=== PATIENT | female | born 1970 | race Caucasian/White ===

== ENCOUNTER 2017-12-22 20:02 | Emergency (ER) | payer BC, SELFPAY ==
[2017-12-22 20:03] VITALS: BP 162/102; PULSE 101; RESP 16; TEMP 37.2; O2SAT 99; BMI 32.5
--- NOTE | 2017-12-22 20:20 | RAD_ITS ---
STUDY: X-RAY - RIGHT ANKLE REASON FOR EXAM: Female, 47 years old. Stepped in hole TECHNIQUE: 3 view(s) of the ankle. COMPARISON: None. FINDINGS: Normal visualized distal tibia and fibula. Normal medial and lateral malleoli. Normal tibiotalar articulation and ankle mortise. Normal visualized talus. Tiny plantar calcaneal spur. The visualized subtalar, talonavicular, calcaneocuboid and tarsal articulations are normal. Post surgical changes involving the fifth metatarsal shaft The soft tissue structures are unremarkable. RAD/Ankle min 3 Views IMPRESSION: No evidence for acute fracture or dislocation at this time Electronically Signed: Dewey Guerra MD at 20:36 EDT , Service support ,
[2017-12-22 20:36] VITALS: BP 157/105; PULSE 105; RESP 18; O2SAT 97
--- NOTE | 2017-12-22 20:55 | ED.VISSUMM ---
- ER Visit Summary Date of Service: 12/22/17 Chief Complaint: Right ankle injury History of Present Illness: The patient is a 47 F presenting with acute onset right ankle pain that started when she stepped in a hole and twisted her right ankle 1 hour ago. Denies any other injuries. Denies foot pain. Physical Examination: Mild tenderness right lateral malleolus. Mild swelling. Skin intact. No ecchymosis. No foot tenderness Test Results: X-ray negative per radiology for fracture Emergency Department Course and Treatment: Placed in Aircast splint. Follow-up if not improving for repeat imaging Treatment Plan: Follow up if not improving Disposition: Home stable Impression: Initial encounter right ankle sprain This note was generated with OneName dictation software. It may contain incorrect words, spelling, and punctuation that were not noted in review of the chart prior to signing ED Disposition - Plan for ED Patient: Chief Complaint: Lower Extremity Injury Instructions: ED Sprain Ankle W X Ray Referrals: Chon Manriquez DO [Primary Care Provider] - 1 Week if not improving
== END 2017-12-22 21:20 | disposition home or self-care (01) ==
LOC: ED 20:31
PROVIDERS: Emergency Provider Emergency Medicine; Family Provider Family Medicine; PCP Family Medicine
DX: S93.401A Sprain of unspecified ligament of right ankle, initial encounter (principal); X50.1XXA Overexertion from prolonged static or awkward postures, initial encounter; Y93.9 Activity, unspecified; Y92.89 Other specified places as the place of occurrence of the external cause; Y99.9 Unspecified external cause status
CPT/HCPCS: 73610; 99283

== ENCOUNTER → 2018-03-11 15:06 | Outpatient (CLI) | payer BC, SELFPAY ==
--- NOTE | 2018-03-11 15:17 | EKG12_ITS ---
Test Reason : Blood Pressure : / mmHG Vent. Rate : 078 BPM Atrial Rate : 078 BPM P-R Int : 144 ms QRS Dur : 110 ms QT Int : 376 ms P-R-T Axes : 044 074 069 degrees QTc Int : 428 ms Normal sinus rhythm Incomplete right bundle branch block T wave abnormality, consider anterolateral ischemia Abnormal ECG Confirmed by VALENCIA ALARCON ([id number]), editor newspaper ERIKA ALVES ([id number]) on 03/15/2018 9:10:56 AM Referred By: Stephen Moon Confirmed By:VALENCIA ALARCON
[2018-03-11 16:02] LABS: Absolute Lymphocyte Count 1.56 X10^3/ul (0.83-4.51); Absolute Neutrophil Count 12.9 X10^3/uL (2.0-7.7); Hematocrit 40.4 % (37-47); Hemoglobin 13.1 g/dl (12.0-15.0); Lymphocyte # 1.56 X10^3/ul (4.0); Lymphocyte % 10.2 % (19-41); Mean Corp Hgb Conc 32.4 g/gl (32-36); Mean Corpuscular Hgb 32.1 pg (27.0-32.0); Mean Platelet Vol. 10.1 fl (6.2-12.0); Monocyte# 0.79 X10^3/uL; Monocyte% 5.2 % (0-10); Neutrophil % 84.3 % (47-70); Platelet Count 346 K/mm3 (150-450); Red Blood Count 4.08 M/mm3 (4.2-5.4); White Blood Count 15.3 K/mm3 (4.4-11.0)
[2018-03-11 16:03] LABS: POSITIVE COUNT NO; POSITIVE DIFFERENTIAL NO; POSITIVE MORPHOLOGY NO
[2018-03-11 16:44] LABS: AST(SGOT) 25 U/L (15-37); Alanine Aminotransfer ALT/SGPT 65 U/L (13-56); Albumin, Serum 3.9 g/dL (3.2-5.0); Alkaline Phosphatase 66 U/L (45-117); Anion Gap 11 (5-15); BUN 14 mg/dL (7-18); BUN/Creat Ratio 22.5 RATIO (10-20); Calcium,Total 9.2 mg/dL (8.5-10.1); Chloride 102 mmol/L (98-107); Cholesterol 258 mg/dL (200); Creatinine, Serum 0.62 mg/dL (0.55-1.02); EST Glomerular Filtration Rate 108 mL/min (>60); Est Glom Filt Rate - Afr Amer 131 mL/min (>60); Globulin 3.9 g/dL (2.2-4.2); Glucose 107 mg/dL (74-106); High Density Lipoprotein 56 mg/dL; Potassium 3.9 mmol/L (3.5-5.1); Protein, Total 7.8 g/dL (6.4-8.2); Sodium Level 136 mmol/L (136-145); Thyroid Stim Hormone (TSH) 0.43 uIU/mL (0.358-3.74); Triglycerides 153 mg/dL; Very Low Density Lipoprotein 31 mg/dL (5-40)
[2018-03-11 16:45] LABS: Vitamin B12 282 pg/mL (211-911); Vitamin D,25 Hydroxy 15.6 ng/mL (29.95-100.01)
== END ==
PROVIDERS: Family Provider Family Medicine; PCP Family Medicine; Referring Provider Nurse Practitioner Family; Visit Provider Nurse Practitioner Family
DX: E53.8 Deficiency of other specified B group vitamins (principal); E55.9 Vitamin D deficiency, unspecified; I10 Essential (primary) hypertension; Z13.29 Encounter for screening for other suspected endocrine disorder; Z13.220 Encounter for screening for lipoid disorders
CPT/HCPCS: 36415; 80053; 80061; 82306; 82607; 84443; 85025; 93005

== ENCOUNTER → 2018-04-04 06:40 | Outpatient (CLI) | payer BC, SELFPAY ==
--- NOTE | 2018-04-04 10:20 | STRESSREP ---
Stress Test Report Pharmacologic myocardial perfusion stress test. 48-year-old lady with a history of chest pain. Stress protocol: Resting EKG demonstrates normal sinus rhythm with a rate of 74 bpm normal intervals are noted resting blood pressure 130/84 mmHg. 0.4 mg of regadenoson was infused per usual protocol followed by rapid intravenous saline flush injection continuous EKG monitoring was performed. The maximum heart rate attained was 106 bpm which was 61% of maximum predicted heart rate the maximum workload was 1 metabolic equivalent. At rest there were no ST or T wave changes noted suggest ischemia at peak infusion no ST or T wave changes were noted suggest ischemia. No clinical angina was noted. The resting blood pressure is 130/84 with a final blood pressure 136/80 mmHg. Myocardial perfusion protocol. 15.0 mCi of technetium 99m sestamibi was injected at rest. 0.4 mg of regadenoson was infused per usual protocol. At peak infusion 44.0 mCi of technetium 99m sestamibi was injected stress images were obtained stress and rest images were reconstructed and compared in the short axis vertical long and horizontal long axis. Gated images were also obtained Perfusion SPECT analysis: Review of the stress images demonstrate normal uptake of tracer noted in all areas of the myocardium with mild reduction of perfusion noted in the anterior wall on the stress images. The resting images demonstrate a similar pattern. The above is likely secondary to anterior breast wall attenuation no obvious ischemia is noted. Gated SPECT analysis: The gated ejection fraction is noted to be 77%. Conclusion: Normal pharmacologic myocardial perfusion stress test. Preserved ejection fraction.
== END ==
PROVIDERS: Family Provider Family Medicine; PCP Family Medicine; Referring Provider Nurse Practitioner Family; Visit Provider Nurse Practitioner Family
DX: R07.9 Chest pain, unspecified (principal); R94.31 Abnormal electrocardiogram [ECG] [EKG]
CPT/HCPCS: 78452; 93017; A9500; A4216; J2785

== ENCOUNTER → 2018-04-27 12:42 | Outpatient (CLI) | payer BC, SELFPAY ==
[2018-03-11 14:08] VITALS: BMI 35.0
--- NOTE | 2018-04-27 12:44 | BI_ITS ---
MAMMOGRAPHY - BILATERAL SCREENING REASON FOR EXAM: Female, 48 years old. Routine annual screening examination. PERTINENT HISTORY: Non-contributory. TECHNIQUE: Digital bilateral breast clay (3D mammographic acquisition) in the CC and MLO projections. 2-D mediolateral oblique (MLO) and craniocaudad (CC) views of both breasts were obtained. CAD: Full Field Digital Mammography with Computer Added Detection was performed. COMPARISON: Comparison is made with prior study dated June 13, 2014. FINDINGS: Breast Composition: There are scattered areas of fibroglandular density. There are no dominant masses or suspicious calcifications. Stable small bilateral benign-appearing axillary lymph nodes. No other significant abnormalities are identified. There has been no significant change since the prior study. BI/Bilat Brst Screen Clay Add-On IMPRESSION: Stable bilateral screening mammogram. Yearly follow-up mammogram recommended. (A) ASSESSMENT CATEGORY: BIRADS Category 2: Benign. A letter regarding these results will be sent to the patient by the facility within 30 days. Approximately 10% of breast cancers are not detected by mammography. A normal mammogram should not delay biopsy of a clinically suspicious abnormality. [id number] Electronically Signed: Evin Fierro MD at 14:38 EST Tel [phone], Service support ,
--- NOTE | 2018-04-27 12:44 | BI_ITS ---
MAMMOGRAPHY - BILATERAL SCREENING REASON FOR EXAM: Female, 48 years old. Routine annual screening examination. PERTINENT HISTORY: Non-contributory. TECHNIQUE: Digital bilateral breast rajesh (3D mammographic acquisition) in the CC and MLO projections. 2-D mediolateral oblique (MLO) and craniocaudad (CC) views of both breasts were obtained. CAD: Full Field Digital Mammography with Computer Added Detection was performed. COMPARISON: Comparison is made with prior study dated June 13, 2014. FINDINGS: Breast Composition: There are scattered areas of fibroglandular density. There are no dominant masses or suspicious calcifications. Stable small bilateral benign-appearing axillary lymph nodes. No other significant abnormalities are identified. There has been no significant change since the prior study. BI/SCREENING MAMM (CAD), BILAT IMPRESSION: Stable bilateral screening mammogram. Yearly follow-up mammogram recommended. (A) ASSESSMENT CATEGORY: BIRADS Category 2: Benign. A letter regarding these results will be sent to the patient by the facility within 30 days. Approximately 10% of breast cancers are not detected by mammography. A normal mammogram should not delay biopsy of a clinically suspicious abnormality. [id number] Electronically Signed: Evin Fierro MD at 14:38 EST Tel [phone], Service support ,
--- OUTSIDE RECORDS SUMMARY | 2018-06-13 16:17 | XMS RPT_ITS ---
:1970 Author Organization OHIP Support Name Relationship Address Phone ROMEO THIBODEAUX Unavailable [address] + [place] [address] S Unavailable Unavailable Unavailable ROMEO THIBODEAUX Unavailable [address] + [place] [address] S Unavailable Unavailable Unavailable ROMEO THIBODEAUX Unavailable [address] + [place] [address] S Unavailable Unavailable Unavailable ROMEO THIBODEAUX Unavailable [address] + [place] [address] S Unavailable Unavailable Unavailable ROMEO THIBODEAUX Unavailable [address] + [place] [address] S Unavailable Unavailable Unavailable ROMEO THIBODEAUX Unavailable [address] + [place] [address] S Unavailable Unavailable Unavailable ROMEO THIBODEAUX Unavailable [address] + [place] [address] S Unavailable Unavailable Unavailable ROMEO THIBODEAUX Unavailable [address] + [place] [address] S Unavailable Unavailable Unavailable ROMEO THIBODEAUX Unavailable [address] + [place] [address] S Unavailable Unavailable Unavailable ROMEO THIBODEAUX Unavailable [address] + [place] [address] S Unavailable Unavailable Unavailable ROMEO THIBODEAUX Unavailable [address] + [place] [address] S Unavailable Unavailable Unavailable Care Team Providers Name Role Phone CHANTEL VALENTE Attending Unavailable CHANTEL VALENTE Attending Unavailable Eligio Ferrer Attending Unavailable Stephen Moon HELP DESK REPRESENTATIVE-C Referring Unavailable Stephen Moon HELP DESK REPRESENTATIVE-C Attending Unavailable Chon Manriquez Primary Care Unavailable Roseanna Fermin Attending Unavailable Moon, Stephen HELP DESK REPRESENTATIVE-C Attending Unavailable Brown, Chon Referring Unavailable Brown, Chon Primary Care Unavailable Brown, Chon Primary Care Unavailable Romero Rios Attending Unavailable Moon, Stephen HELP DESK REPRESENTATIVE-C Attending Unavailable Brown, Chon Referring Unavailable Brown, Chon Primary Care Unavailable Moon, Stephen HELP DESK REPRESENTATIVE-C Attending Unavailable Brown, Chon Referring Unavailable Moon, Stephen HELP DESK REPRESENTATIVE-C Attending Unavailable Moon, Stephen HELP DESK REPRESENTATIVE-C Referring Unavailable Brown, Chon Primary Care Unavailable Ameya Alarcon Attending Unavailable Moon, Stephen HELP DESK REPRESENTATIVE-C Referring Unavailable Brown, Chon Primary Care Unavailable Moon, Stephen HELP DESK REPRESENTATIVE-C Consulting Unavailable Ameya Alarcon Attending Unavailable Moon, Stephen HELP DESK REPRESENTATIVE-C Referring Unavailable Moon, Stephen HELP DESK REPRESENTATIVE-C Attending Unavailable Moon, Stephen HELP DESK REPRESENTATIVE-C Referring Unavailable Brown, Chon Primary Care Unavailable PROBLEMS PROBLEMS DATE TYPE CONDITION / CODE ATTENDING STATUS SOURCE 04/26/2018 Unknown R94.31 - Abnormal NabilEligio woods Active [place] electrocardiogram Community [ECG] [EKG] / Hospital R94.31(ICD-10) Repository 03/15/2018 Unknown Z13.220 - Encounter Ameya Alarcon Active [place] for screening for Community lipoid disorders / Hospital Z13.220(ICD-10) Repository 03/15/2018 Unknown Z13.29 - Encounter for Ameya Alarcon Active [place] screening for other Community suspected endocrine Hospital disorder / Repository Z13.29(ICD-10) 03/15/2018 Unknown E53.8 - Deficiency of Ameya Alarcon Active [place] other specified B Community group vitamins / Hospital E53.8(ICD-10) Repository 03/15/2018 Unknown E55.9 - Vitamin D Ameya Alarcon Active [place] deficiency, Community unspecified / Hospital E55.9(ICD-10) Repository 03/30/2018 Unknown I10 - Essential Ameya Alarcon Active [place] (primary) hypertension Community / I10(ICD-10) Hospital Repository 03/10/2018 Active Unknown / UNK(Unknown) Jose VALENTE [place] [facility] [place] Repository 02/17/2018 Active Pain in right knee / NA Active [facility] M25.561(ICD-10) Clinic Other [place] Repository 09/28/2017 Unknown Z12.31 - Encounter for Stephen Moon Active [place] screening mammogram HELP DESK REPRESENTATIVE-C [facility] for malignant neoplasm [facility] breast / Repository Z12.31(ICD-10) PROCEDURES PROCEDURES No Procedure Records FoundRESULTS RESULTS SCREENING MAMM (CAD), Observed: 04/27/2018 Status: F Source: [place] 12:44 PM [facility] REPOSITORY [facility] Imaging Services [address] [place] [address] SCREENING MAMM (CAD), BILAT MR#: [id number] Acct: [id number] Name: YAMILKA THIBODEAUX Rep #: [id number] : 1970 F 48 From: Evin Fierro MD PCP: Chon Manriquez, DO Status: REG CLI Study: SCREENING MAMM (CAD), BILAT Date of Exam: 04/27/18 Exam# [id number] Ordering Dr: Stephen Moon NP-Lisa MAMMOGRAPHY - BILATERAL SCREENING REASON FOR EXAM: Female, 48 years old. Routine annual screening examination. PERTINENT HISTORY: Non-contributory. TECHNIQUE: Digital bilateral breast clay (3D mammographic acquisition) in the CC and MLO projections. 2-D mediolateral oblique (MLO) and craniocaudad (CC) views of both breasts were obtained. CAD: Full Field Digital Mammography with Computer Added Detection was performed. COMPARISON: Comparison is made with prior study dated June 13, 2014. FINDINGS: Breast Composition: There are scattered areas of fibroglandular density. There are no dominant masses or suspicious calcifications. Stable small bilateral benign-appearing axillary lymph nodes. No other significant abnormalities are identified. There has been no significant change since the prior study. BI/SCREENING MAMM (CAD), BILAT IMPRESSION: Stable bilateral screening mammogram. Yearly follow-up mammogram recommended. (A) ASSESSMENT CATEGORY: BIRADS Category 2: Benign. A letter regarding these results will be sent to the patient by the facility within 30 days. Approximately 10% of breast cancers are not detected by mammography. A normal mammogram should not delay biopsy of a clinically suspicious abnormality. [id number] Electronically Signed: Evin Fierro MD at 14:38 EST Tel [phone], Service support , CC: Chon Manriquez DO; Stephen Moon NP Women'S Ministry Director: Signed BILAT BRST SCREEN Observed: 04/27/2018 Status: F Source: [place] ADD-ON 12:44 PM [facility] REPOSITORY [facility] Imaging Services [address] [place] [address] Bilat Brst Screen Clay Add-On MR#: [id number] Acct: [id number] Name: YAMILKA THIBODEAUX Rep #: [id number] : 1970 F 48 From: Evin Fierro MD PCP: Chon Manriquez DO Status: REG CLI Study: Bilat Brst Screen Clay Add-On Date of Exam: 04/27/18 Exam# [id number] Ordering Dr: Stephen Moon HELP DESK REPRESENTATIVE-C MAMMOGRAPHY - BILATERAL SCREENING REASON FOR EXAM: Female, 48 years old. Routine annual screening examination. PERTINENT HISTORY: Non-contributory. TECHNIQUE: Digital bilateral breast clay (3D mammographic acquisition) in the CC and MLO projections. 2-D mediolateral oblique (MLO) and craniocaudad (CC) views of both breasts were obtained. CAD: Full Field Digital Mammography with Computer Added Detection was performed. COMPARISON: Comparison is made with prior study dated June 13, 2014. FINDINGS: Breast Composition: There are scattered areas of fibroglandular density. There are no dominant masses or suspicious calcifications. Stable small bilateral benign-appearing axillary lymph nodes. No other significant abnormalities are identified. There has been no significant change since the prior study. BI/Bilat Brst Screen Clay Add-On IMPRESSION: Stable bilateral screening mammogram. Yearly follow-up mammogram recommended. (A) ASSESSMENT CATEGORY: BIRADS Category 2: Benign. A letter regarding these results will be sent to the patient by the facility within 30 days. Approximately 10% of breast cancers are not detected by mammography. A normal mammogram should not delay biopsy of a clinically suspicious abnormality. [id number] Electronically Signed: Evin Fierro MD at 14:38 EST Tel [phone], Service support , CC: Chon Manriquez DO; Stephen Moon NP Women'S Ministry Director: Signed STRESS REPORT Observed: 04/04/2018 Status: F Source: [place] 10:24 AM [facility] REPOSITORY [facility] Cardiovascular Services [address] [place] [address] MR#: [id number] Acct: [id number] Name: YAMILKA THIBODEAUX Rep #: [id number] : 1970 48 From: Eligio Ferrer MD Primary Care: Chon Manriquez DO Status: REG CLI Ordering Dr: Sex: F C Stress Test Report Pharmacologic myocardial perfusion stress test. 48-year-old lady with a history of chest pain. Stress protocol: Resting EKG demonstrates normal sinus rhythm with a rate of 74 bpm normal intervals are noted resting blood pressure 130/84 mmHg. 0.4 mg of regadenoson was infused per usual protocol followed by rapid intravenous saline flush injection continuous EKG monitoring was performed. The maximum heart rate attained was 106 bpm which was 61% of maximum predicted heart rate the maximum workload was 1 metabolic equivalent. At rest there were no ST or T wave changes noted suggest ischemia at peak infusion no ST or T wave changes were noted suggest ischemia. No clinical angina was noted. The resting blood pressure is 130/84 with a final blood pressure 136/80 mmHg. Myocardial perfusion protocol. 15.0 mCi of technetium 99m sestamibi was injected at rest. 0.4 mg of regadenoson was infused per usual protocol. At peak infusion 44.0 mCi of technetium 99m sestamibi was injected stress images were obtained stress and rest images were reconstructed and compared in the short axis vertical long and horizontal long axis. Gated images were also obtained Perfusion SPECT analysis: Review of the stress images demonstrate normal uptake of tracer noted in all areas of the myocardium with mild reduction of perfusion noted in the anterior wall on the stress images. The resting images demonstrate a similar pattern. The above is likely secondary to anterior breast wall attenuation no obvious ischemia is noted. Gated SPECT analysis: The gated ejection fraction is noted to be 77%. Conclusion: Normal pharmacologic myocardial perfusion stress test. Preserved ejection fraction. 04/04/18 1024 <Electronically signed by Eligio Ferrer MD> Date Eligio Ferrer MD CC: Chon Manriquez DO; Stephen Moon NP Date Dictated: 04/04/18 1020 Date Transcribed: 04/04/18 1020 Women'S Ministry Director: [place] Signed INTERNAL MEDICINE Observed: 03/16/2018 Status: F Source: [place] OFFICE VISIT 8:36 AM [facility] Internal Medicine [address] [place] [address] OFFICE VISIT Date of Service: 03/11/18 MR#: [id number] Acct: [id number] Name: YAMILKA THIBODEAUX Rep #: [id number] : 1970 Provider: Stephen Moon NP Age/Sex: 48/F Location: [facility] [place] Status: Signed Intake Vital Signs03/11/18 Height 5 ft 7 in Intake Visit Reasons: hi bp Chief Complaint: headache and flushing Is patient in pain?: No Allergies erythromycin base [Erythromycin Base] Allergy (Verified 09/28/17 10:49) Other omeprazole Allergy (Verified 09/28/17 10:49) Other orange Allergy (Verified 12/22/17 20:07) Anaphylaxis Penicillins [PCN] Allergy (Verified 12/22/17 20:07) Anaphylaxis Medications amlodipine 10 mg-valsartan 160 mg tablet 1 tab PO QDAY #90 tab 09/28/17 [Rx Confirmed 09/28/17] omeprazole 40 mg capsule,delayed release 40 mg PO DAILY 03/11/18 [History Confirmed 03/11/18] cholecalciferol (vitamin D3) 50,000 unit capsule 50,000 unit PO QWEEK #8 cap 03/15/18 [Rx] PFSH Medical History Cyst of brain (Acute) GERD (gastroesophageal reflux disease) (Acute) History of hysterectomy (Acute) High blood pressure (Chronic) Surgical History History of foot surgery (Acute) Family History Father Myocardial infarction High cholesterol Mother Myocardial infarction High cholesterol Sister Cancer Grandmother Aneurysm Social History Smoking Status: Current some day smoker alcohol intake: current alcohol intake frequency: a few times a month Alcohol type: beer, wine substance use type: does not use what type of physical activity do you participate in: walking frequency: daily HPI HPI Chief Complaint: headache and flushing Details: YAMILKA THIBODEAUX, is a 48 F who presents to the office today for acute visit for complaints of headache and flushing. Patient has a past medical history of hypertension, vitamin B12 deficiency and vitamin D deficiency. Patient states yesterday she received steroid injection into her left knee from orthopedics. While in Ortho office she states her blood pressure was 150s over 100s and she was told that she needed to follow-up with her primary care doctor. When she woke up this morning she felt flushed, had a headache and had midsternal chest pain 4/10 dull. She states the flushing and headache she has had in the past when she was diagnosed with hypertension and thought her BP was elevated. She does have a blood pressure cuff at home but did not check her blood pressure at that time. Currently the patient has no chest pain, headache or flushing. All of her symptoms have resilved. In office blood pressure 132/83. The patient otherwise currently denies any fever, chills, nausea, vomiting, shortness of breath, chest pain or pressure, palpitations, orthopnea, lower extremity edema, syncope or presyncopal episodes. ROS Const Constitutional: Positive for headache(s); no weight change, body ache, chills, fatigue, sleep problems, fever(s), change in appetite, snoring, weakness, frequent falls or excessive sweating Eyes Eyes: No change in vision, eye pain, light sensitivity or blurry vision ENT ENT: Positive for headache(s); no abnormal hearing, ear pain, tinnitus, nasal congestion, sore throat or neck pain Resp Respiratory: No snoring, cough, shortness of breath or wheezing Cardio Cardiology: No excessive sweating, chest pain at rest, chest pain with exertion, shortness of breath, dyspnea on exertion, palpitations, orthopnea or lightheadedness Gastro GI: No abdominal pain, change in bowel habits, constipation, diarrhea, vomiting, nausea/dyspepsia or cramping Genitourinary-Female: No burning urination, painful urination, urinary incontinence, urinary frequency, abnormal vaginal bleeding, pelvic pain or other Musc Musculoskeletal: No neck pain, abnormal walking, joint pain, back pain, limited range of motion, numbness, tingling or muscle weakness Skin Skin: Positive for other (facial flushing); no redness, dry skin, itching, lesions, wounds or rash Breast Breast: Positive for other (facial flushing) Neuro Neurology: Positive for headache(s); no weakness, frequent falls, abnormal hearing, abnormal walking, numbness, tingling, abnormal speech, dizziness or memory loss Psych Psychiatric: No change in appetite, No memory loss, No anxiety, No depression, No Thoughts of harming yourself/Others Endo Endocrine: No fatigue, excessive sweating, cold intolerance, increased thirst/drinking, heat intolerance, flushing or increased hunger Aller/Imm Allergy/Immunologic: No wheezing, itchy eyes, hives or seasonal allergy symptoms Ethan/Lymp Hematologic/Lymphatic: No easy bleeding, easy bruising or enlarged lymph nodes Exam Const General: cooperative, comfortable, no acute distress Nutritional Appearance: well nourished, obese Orientation: alert, oriented x3 Limitations: mental status not altered Eyes General: appearance normal, both eyes and all related structures Neck Neck: normal visual inspection, no lymphadenopathy Thyroid: thyroid normal Chest Chest palpation AND inspection: normal inspection of the chest, normal palpation of entire chest wall, no tenderness Resp Effort AND Inspection: normal respiratory effort, able to speak in complete sentences, normal respiratory pattern, symmetric chest movement, no audible wheezes, no cough Auscultation: Bilateral: Clear to Auscultation Cardio Palpation: normal PMI Rate: regular rate Heart Sounds: S1 normal, S2 normal, normal S1 and S2, no click, no gallops, no murmurs, no rubs Musc Musculoskeletal: No joint tenderness, decreased ROM or muscle weakness Skin General: no rashes or lesions noted, elasticity normal, turgor normal Lesions: no lesions Rashes: no rashes Neuro General: alert, awake, oriented x3, CN's II-XI intact bilaterally Speech: speech normal Gait: normal gait Motor: muscle tone normal throughout Extrem General: normal to inspection, normal gait, no edema, no pedal edema Psych Appearance: grossly normal Mental Status: mental status grossly normal Affect: normal affect Attitude: cooperative Thought Process: normal Assessment AND Plan 1. Chest pain R07.9 Plan Patients symptoms she was experiencingmay have been due to the cortisone injection. Patient currently having no chest pain, flushing or BARRY however. Will obtain EKG. Patient educated for chest pain red flag signs and symptoms and when to seek emergency medical care. 2. HTN (hypertension) I10 Plan In office blood pressure at goal. No changes to medication at this time. patient encouraged to monitor blood pressure at home and keep a daily log. Patient to call office with log in 2 weeks. Will obtain routine lab work. Hypertension: Controlled on current medications, will not make any adjustments at this time. Will continue with current medication regimen, risk factor reduction, and lifestyle modifications. Discussed dietary changes that should be considered which include reducing the amount of sodium intake. Orders Orders: 3. Vitamin B12 deficiency E53.8 Plan Patient has a history of vitamin B12 deficiency, will check levels. Orders Orders: 4. Vitamin D deficiency E55.9 Plan Patient has a history of vitamin D deficiency, will check vitamin D levels. currently on no supplementation Orders Orders: Plan Detail Other Orders Orders: Follow Up 4 weeks or sooner if needed Coding Level of Care Code Off vis,est,level 3 Diagnoses Chest pain R07.9 HTN (hypertension) I10 Vitamin B12 deficiency E53.8 Vitamin D deficiency E55.9 03/16/18 0836 <Electronically signed by Stephen RODRIGUEZ> Date Stephen RODRIGUEZ Cosigner Signature: Date (if applicable) CC: 12 LEAD ELECTROCARDIOGRAM Observed: 03/15/2018 Status: F Source: [place] 9:11 AM [facility] REPOSITORY [facility] Cardiovascular Services [address] [place] [address] 12 Lead EKG 03/11/18 1530 MR#: [id number] Acct: [id number] Name: YAMILKA THIBODEAUX Rep #: [id number] : 1970 48 From: Ameya Alarcon MD Attending Dr: Stephen Moon NP Status: REG CLI Ordering Dr: Stephen Moon NP-C Date: 03/11/18 Location: LAB Sex: F C Admitted: Test Reason : Blood Pressure : / mmHG Vent. Rate : 078 BPM Atrial Rate : 078 BPM P-R Int : 144 ms QRS Dur : 110 ms QT Int : 376 ms P-R-T Axes : 044 074 069 degrees QTc Int : 428 ms Normal sinus rhythm Incomplete right bundle branch block T wave abnormality, consider anterolateral ischemia Abnormal ECG Confirmed by AMEYA ALARCON ([id number]), website/blog editor ERIKA ALVES ([id number]) on 03/15/2018 9:10:56 AM Referred By: Stephen Moon Confirmed By:AMEYA ALARCON 03/15/18 0910 Date Ameya Alarcon MD CC: Chon Manriquez DO; Stephen Moon HELP DESK REPRESENTATIVE Signed PROGRESS Observed: 03/14/2018 Status: COMPLETED Source: [place] 9:54 PM [facility] REPOSITORY O ID: [id number] Author: Chantel Valente Service: (none) Author Type: Physician Type: Progress Notes Filed: 03/14/2018 9:58 PM Note Text: PROCEDURE- JOINT INJECTION Joint Sites: knee On exam, the joint is cool to touch without sign of infection. Flexion is limited and is uncomfortable. Crepitation is present with ROM. The proposed risks versus benefits of local anesthetic and steroid injection were discussed in detail. The patient verbalizes understanding and elects to proceed with the injection. The procedure was verified with the patient, including the correct injection site, and confirmation with both the patient and accounting support specialist. Under sterile technique following verbal consent the patient underwent a right knee injection with 2cc of 6 mg/ml Celestone with 3 cc 1% Lidocaine and tolerated the procedure well without complications. The injection was performed through a superior-lateral portal to the knee without incident. The patient tolerated the injection well. Verbal instructions on post-injection care were given. Chantel Valente MD CBC W/DIFF, AUTOMATED Collected: 03/11/2018 Status: F Source: [place] 3:12 PM [facility] REPOSITORY TYPE CODE TESTS RESULT OUT OF RANGE REFERENCE UNITS LAB L100.1000 4.4-11.0 K/mm3 High WBC 15.3 LAB L100.1200 4.2-5.4 M/mm3 Low RBC 4.08 LAB L100.1300 12.0-15.0 g/dl Normal HGB 13.1 LAB L100.1400 37-47 % Normal HCT 40.4 LAB L100.1500 81-99 fL Normal MCV 99.0 LAB L100.1600 27.0-32.0 pg High MCH 32.1 LAB L100.1700 32-36 g/gl Normal MCHC 32.4 LAB L100.1810 11.6-14.6 % Normal RDW CV 13.0 LAB L100.1820 35.1-43.9 fl High RDW SD 47.0 LAB L100.1900 150-450 K/mm3 Normal PLT 346 LAB L100.2000 6.2-12.0 fl Normal MPV 10.1 LAB L100.2100 47-70 % High NEUT% 84.3 LAB L100.2200 19-41 % Low LY% 10.2 LAB L100.2300 0-10 % Normal MONO% 5.2 LAB L100.2400 0-5 % Normal EO% 0.0 LAB L100.2500 0-1 % Normal BASO% 0.0 LAB L100.2550 0.0-0.9 % Normal IM GRAN % 0.300 Result Comment: IG% - Immature Granulocytes (promyelocytes, myelocytes and metamyelocytes) > 1% indicates that a LEFT SHIFT is Present. LAB L100.2620 2.0-7.7 X10 3/uL High Absolute Neut 12.9 LAB L100.2720 0.83-4.51 X10 3/ul Normal Absolute Lymph 1.56 Performed By: #### L100.0100 #### [facility] [address] [place], [address] COMPREHENSIVE METABOLIC Collected: 03/11/2018 Status: F Source: [place] 3:12 PM [facility] REPOSITORY TYPE CODE TESTS RESULT OUT OF RANGE REFERENCE UNITS LAB L501.0100 74-106 mg/dL High GLU 107 Result Comment: Fasting Glucose result from 100 to 125 mg/dL suggests IMPAIRED HOMEOSTASIS per A.D.A. criteria. Please note revised GLUCOSE reference range effective 2017. LAB L501.1000 7-18 mg/dL Normal BUN 14 LAB L501.1100 0.55-1.02 mg/dL Normal CREAT,SERUM 0.62 Result Comment: The validity of the calculated GFR AND GFRAA in patients over 70 years has not been determined. Clinical correlation is essential. LAB L501.1110 >60 mL/min Normal EST GFR 108 Result Comment: Non- GFR Calc LAB L501.1115 >60 mL/min Normal EST GFR - AA 131 Result Comment: GFR Calc LAB L501.1300 10-20 RATIO High BUN/CRE 22.5 LAB L501.1500 6.4-8.2 g/dL T Normal PROT 7.8 LAB L501.1800 3.2-5.0 g/dL Normal ALB 3.9 LAB L501.1950 2.2-4.2 g/dL Normal GLOB 3.9 LAB L501.2000 0.9-2.4 RATIO Normal A/G 1.0 LAB L501.2200 8.5-10.1 mg/dL CA Normal 9.2 LAB L501.4100 15-37 U/L Normal AST 25 LAB L501.4305 45-117 U/L Normal ALK P 66 LAB L501.4405 13-56 U/L High ALT 65 LAB L501.4600 0.20-1.00 mg/dL T Normal BILI 0.60 LAB L501.5300 136-145 mmol/L NA Normal 136 LAB L501.5600 3.5-5.1 mmol/L K Normal 3.9 LAB L501.5900 98-107 mmol/L CL Normal 102 LAB L501.6100 21.0-32.0 mmol/L Normal CO2 23.0 LAB L501.6200 5-15 Normal GAP 11 Performed By: #### L500.4050, L500.4100, L501.9520 #### [facility] [address] [place], [place], [id number] LIPID PROFILE Collected: 03/11/2018 Status: F Source: [place] 3:12 PM [facility] REPOSITORY TYPE CODE TESTS RESULT OUT OF RANGE REFERENCE UNITS LAB L501.4900 200 mg/dL High CHOL 258 Result Comment: <200 mg/dL Desirable 200-240 mg/dL Borderline >240 mg/dL High Risk LAB L501.5000 mg/dL Normal TRIG 153 Result Comment: The drugs N-Acetylcysteine and Metamizole may falsely depress this assay. Serum Triglycerides Reference Interval Normal <150 mg/dL Borderline high 150 - 199 mg/dL High 200 - 499 mg/dL Very High > or = 500 mg/dL LAB L501.6400 mg/dL Normal HDL 56 Result Comment: The drugs N-Acetylcysteine and Metamizole may falsely depress this assay. Reference Range HDL <40 mg/dL Low HDL Cholesterol HDL >or= 60 mg/dL High HDL Cholesterol LAB L501.6500 0-130 mg/dL High LDL 171 LAB L501.6600 5-40 mg/dL Normal VLDL 31 Performed By: #### L500.4050, L500.4100, L501.9520 #### [facility] [address] [place], [place], [id number] THYROID STIM HORMONE Collected: 03/11/2018 Status: F Source: [place] (TSH) 3:12 PM [facility] REPOSITORY TYPE CODE TESTS RESULT OUT OF RANGE REFERENCE UNITS LAB L501.9520 0.358-3.74 uIU/mL Normal TSH 0.43 Performed By: #### L500.4050, L500.4100, L501.9520 #### [facility] [address] [place], [place], [id number] VITAMIN B12 Collected: 03/11/2018 Status: F Source: [place] 3:12 PM [facility] REPOSITORY TYPE CODE TESTS RESULT OUT OF RANGE REFERENCE UNITS LAB L503.0105 211-911 pg/mL Normal Vitamin B12 282 Performed By: #### L503.0105, L506.1000 #### [facility] [address] [place], [address] VITAMIN D,25 HYDROXY Collected: 03/11/2018 Status: F Source: [place] 3:12 PM [facility] REPOSITORY TYPE CODE TESTS RESULT OUT OF REFERENCE UNITS RANGE LAB L506.1000 29.95-100.01 ng/mL Low Vitamin D 15.6 25-OH Result Comment: Vitamin D 25(OH) Status Range Deficiency <20 ng/mL (50nmol/L) Insuffciency 20 - 30 ng/mL (50 - 75 nmol/L) Sufficiency 30 - 100 ng/mL (75 - 250 nmol/L) Toxicity >100 ng/mL (>250 nmol/L) Performed By: #### L503.0105, L506.1000 #### [facility] [address] [place], [address] PROGRESS Observed: 03/10/2018 Status: COMPLETED Source: [place] 2:29 PM [facility] REPOSITORY HNO ID: [id number] Author: Chantel Valente Service: (none) Author Type: Physician Type: Progress Notes Filed: 04/09/2018 1:16 PM Note Text: PROCEDURE- JOINT INJECTION Joint Sites: knee She has had previous injections in the past. On exam, the joint is cool to touch without sign of infection. Flexion is limited and is uncomfortable. Crepitation is present with ROM. The proposed risks versus benefits of local anesthetic and steroid injection were discussed in detail. The patient verbalizes understanding and elects to proceed with the injection. The procedure was verified with the patient, including the correct injection site, and confirmation with both the patient and accounting support specialist. Under sterile technique following verbal consent the patient underwent a left knee injection with 2cc of 6 mg/ml Celestone with 3 cc 1% Lidocaine and tolerated the procedure well without complications. The injection was performed through a superior-lateral portal to the knee without incident. The patient tolerated the injection well. Verbal instructions on post-injection care were given. Chantel Valente MD PROGRESS Observed: 03/10/2018 Status: COMPLETED Source: [place] 2:01 PM [facility] REPOSITORY HNO ID: [id number] Author: Romeo Luz Service: (none) Author Type: Physician Type: Progress Notes Filed: 04/09/2018 1:16 PM Note Text: DEPARTMENT OF ORTHOPAEDICS PATIENT INFO: Yamilka Thibodeaux 48 year old REFERRING Melvin: SELF HISTORY CHIEF COMPLAINT: left knee pain HPI: Yamilka is a 48 year old female that presents today with the complaints of left knee pain. She describes knee pain that bothers her with activity, especially after she has been seated for a long time. She also describes symptoms of popping, clicking, and mechanical locking of her knee joint. She has no acute injury. She had similar symptoms on her right side that improve with a cortisone injection 3 weeks ago. Ms. Thibodeaux is here to discuss the current status of her joint and the alternatives for treatment. ROS: No new medical issues No past medical history on file. No past surgical history on file. Current Outpatient Prescriptions: cqISVFIvjt-Pjjubdfhp-MZPI (EXFORGE HCT) 10-160-12.5 mg tab Take by mouth once daily. Disp: Rfl: LANSOPRAZOLE (PREVACID ORAL) Take 40 mg by mouth once daily. Disp: Rfl: HYDROcodone-acetaminophen (NORCO) 5-325 mg per tablet Take 1 tablet by mouth every 6 hours as needed. Disp: Rfl: No current facility-administered medications for this visit. ALLERGIES Allergen Reactions - Wildomar Flavor Swelling Throat swelling - Erythromycin Anaphylaxis - Nexium [Esomeprazol* Vomiting - Paxil [Paroxetine] Mental Status Change, Other: See Comments Suicide thoughts - Penicillins Anaphylaxis - Tylenol [Acetaminop* Other: See Comments Puts to sleep No family history on file. Social History Substance Use Topics - Smoking status: Former Smoker - Smokeless tobacco: Current User - Alcohol use Yes PHYSICAL EXAM: Body mass index is 36.45 kg/m?. GENERAL:Habitus: Obese CV: No extremity swelling, varices, edema, pallor, erythema PULSES: Normal,bilateral femoral 2+/2+, popliteal 2+/2+, dorsalis pedis 2+/2+, posterior tibial 2+/2+ SKIN: No rash, lesions. involving the four extremities. NEURO/PSYCH: A/Ox3. Nl mood, with no signs of depression, anxiety, or agitation. There are no pathologic reflexes. LYMPHATIC: There is no adenoathy to palpation. UPPER EXTREMITIES Right - Normal to appearance without abnormality in range of motion, stability, or strength Left - Normal to appearance without abnormality in range of motion, stability, or strength LOWER EXTREMITIES: GAIT: normal ALIGNMENT:Standing lower extremity alignment reveals no abnormality. Standing erect,the knees are fully extended. The patient has mild trouble getting up onto the exam table. Both lower extremities neurovascularly intact. MOTOR EXAM: Normal HIP EXAM: On the exam table seated and supine, hip range of motion bilaterally was symmetric, unrestricted and non-painful. No trochanteric pain to palpation. Straight leg raise and femoral nerve stretch tests were negative for acute radicular symptoms to suggest spine problems. RIGHT HIP EXAMINATION: Flexion was 100 degrees, extension full extension, 30 external, 30 degrees internal rotation. Active abduction was 30. LEFT HIP EXAMINATION: Flexion was 100 degrees, extension full extension, 30 external, 30 degrees internal rotation. Active abduction was 30. RIGHT KNEE EXAM: No effusion, no erythema and induration. No previous incisions. No popliteal fullness consistent with a Gonzalez's cyst. Range of motion 0 extension to 130 degrees of flexion. Patellofemoral crepitus was present and compression caused no pain. Ligamentous structures are intact and stable. Instability was not present. Polly had a firm endpoint, and there was no evidence for ACL insufficiency. Posterior drawer had a firm endpoint indicative of a functioning PCL. McMurrays' was negative LEFT KNEE EXAM: No effusion, no erythema and induration. No previous incisions. No popliteal fullness consistent with a Gonzalez's cyst. Range of motion 0 extension to 130 degrees of flexion. Patellofemoral crepitus was present and compression caused no pain. Ligamentous structures are intact and stable. Instability was not present. Polly had a firm endpoint, and there was no evidence for ACL insufficiency. Posterior drawer had a firm endpoint indicative of a functioning PCL. McMurrays' was positive for a medial click and pain,indicative of a meniscal tear X-RAYS: AP radiograph of left knee demonstrates no significant degenerative changes. No fracture. Medial and lateral joint spaces are maintained. MEDICAL DECISION MAKING: ASSESSMENT: Left knee internal derangement Suspect possible meniscal tear. PLAN: Yamilka and I had a long discussion about treatment options. Cortisone injection provided today She will call to notify us of the results. Should symptoms return in the next few weeks, will consider MRI. Further work-up required: No Rx Drug Management: No prescription given at today's appointment. Chantel Valente MD CNOV Observed: 03/10/2018 Status: COMPLETED Source: [place] 2:00 PM [facility] REPOSITORY Office Visit (ORMDNA) YAMILKA THIBODEAUX ([id number]) 1970 F [facility] Date Time Provider Department 03/10/18 2:00 PM CHANTEL VALENTE During your visit today, we recorded the following information about you: Weight Height 102.4 kg 1.676 m Romeo Escobar DO 04/09/2018 1:16 PM Signed DEPARTMENT OF ORTHOPAEDICS PATIENT INFO: Yamilka Thibodeaux 48 year old REFERRING MFili.: SELF HISTORY CHIEF COMPLAINT: left knee pain HPI: Yamilka is a 48 year old female that presents today with the complaints of left knee pain. She describes knee pain that bothers her with activity, especially after she has been seated for a long time. She also describes symptoms of popping, clicking, and mechanical locking of her knee joint. She has no acute injury. She had similar symptoms on her right side that improve with a cortisone injection 3 weeks ago. Ms. Thibodeaux is here to discuss the current status of her joint and the alternatives for treatment. ROS: No new medical issues No past medical history on file. No past surgical history on file. Current Outpatient Prescriptions: diVXCFMgty-Ajzdiydlr-MFEH (EXFORGE HCT) 10-160-12.5 mg tab Take by mouth once daily. Disp: Rfl: LANSOPRAZOLE (PREVACID ORAL) Take 40 mg by mouth once daily. Disp: Rfl: HYDROcodone-acetaminophen (NORCO) 5-325 mg per tablet Take 1 tablet by mouth every 6 hours as needed. Disp: Rfl: No current facility-administered medications for this visit. ALLERGIES Allergen Reactions - Wildomar Flavor Swelling Throat swelling - Erythromycin Anaphylaxis - Nexium [Esomeprazol* Vomiting - Paxil [Paroxetine] Mental Status Change, Other: See Comments Suicide thoughts - Penicillins Anaphylaxis - Tylenol [Acetaminop* Other: See Comments Puts to sleep No family history on file. Social History Substance Use Topics - Smoking status: Former Smoker - Smokeless tobacco: Current User - Alcohol use Yes PHYSICAL EXAM: Body mass index is 36.45 kg/m?. GENERAL:Habitus: Obese CV: No extremity swelling, varices, edema, pallor, erythema PULSES: Normal,bilateral femoral 2+/2+, popliteal 2+/2+, dorsalis pedis 2+/2+, posterior tibial 2+/2+ SKIN: No rash, lesions. involving the four extremities. NEURO/PSYCH: A/Ox3. Nl mood, with no signs of depression, anxiety, or agitation. There are no pathologic reflexes. LYMPHATIC: There is no adenoathy to palpation. UPPER EXTREMITIES Right - Normal to appearance without abnormality in range of motion, stability, or strength Left - Normal to appearance without abnormality in range of motion, stability, or strength LOWER EXTREMITIES: GAIT: normal ALIGNMENT:Standing lower extremity alignment reveals no abnormality. Standing erect,the knees are fully extended. The patient has mild trouble getting up onto the exam table. Both lower extremities neurovascularly intact. MOTOR EXAM: Normal HIP EXAM: On the exam table seated and supine, hip range of motion bilaterally was symmetric, unrestricted and non-painful. No trochanteric pain to palpation. Straight leg raise and femoral nerve stretch tests were negative for acute radicular symptoms to suggest spine problems. RIGHT HIP EXAMINATION: Flexion was 100 degrees, extension full extension, 30 external, 30 degrees internal rotation. Active abduction was 30. LEFT HIP EXAMINATION: Flexion was 100 degrees, extension full extension, 30 external, 30 degrees internal rotation. Active abduction was 30. RIGHT KNEE EXAM: No effusion, no erythema and induration. No previous incisions. No popliteal fullness consistent with a Gonzalez's cyst. Range of motion 0 extension to 130 degrees of flexion. Patellofemoral crepitus was present and compression caused no pain. Ligamentous structures are intact and stable. Instability was not present. Polly had a firm endpoint, and there was no evidence for ACL insufficiency. Posterior drawer had a firm endpoint indicative of a functioning PCL. McMurrays' was negative LEFT KNEE EXAM: No effusion, no erythema and induration. No previous incisions. No popliteal fullness consistent with a Gonzalez's cyst. Range of motion 0 extension to 130 degrees of flexion. Patellofemoral crepitus was present and compression caused no pain. Ligamentous structures are intact and stable. Instability was not present. Polly had a firm endpoint, and there was no evidence for ACL insufficiency. Posterior drawer had a firm endpoint indicative of a functioning PCL. McMurrays' was positive for a medial click and pain,indicative of a meniscal tear X-RAYS: AP radiograph of left knee demonstrates no significant degenerative changes. No fracture. Medial and lateral joint spaces are maintained. MEDICAL DECISION MAKING: ASSESSMENT: Left knee internal derangement Suspect possible meniscal tear. PLAN: Yamilka and I had a long discussion about treatment options. Cortisone injection provided today She will call to notify us of the results. Should symptoms return in the next few weeks, will consider MRI. Further work-up required: No Rx Drug Management: No prescription given at today's appointment. MD Chantel Ramirez MD 04/09/2018 1:16 PM Signed PROCEDURE- JOINT INJECTION Joint Sites: knee She has had previous injections in the past. On exam, the joint is cool to touch without sign of infection. Flexion is limited and is uncomfortable. Crepitation is present with ROM. The proposed risks versus benefits of local anesthetic and steroid injection were discussed in detail. The patient verbalizes understanding and elects to proceed with the injection. The procedure was verified with the patient, including the correct injection site, and confirmation with both the patient and accounting support specialist. Under sterile technique following verbal consent the patient underwent a left knee injection with 2cc of 6 mg/ml Celestone with 3 cc 1% Lidocaine and tolerated the procedure well without complications. The injection was performed through a superior-lateral portal to the knee without incident. The patient tolerated the injection well. Verbal instructions on post-injection care were given. Chantel Valente MD Referring Provider: SELF [[id number]] Allergies As of Date: 03/10/2018 Noted Allergy Reaction CITRUS FLAVOR 03/28/2014 7 - Swelling Comments: Throat swelling ERYTHROMYCIN 03/28/2014 10 - Anaphylaxis NEXIUM (ESOMEPRAZOLE MAGNESIUM) 03/28/2014 11 - Vomiting PAXIL (PAROXETINE) 03/28/2014 1 - Mental Status Change 14 - Other: See Comments Comments: Suicide thoughts PENICILLINS 03/28/2014 10 - Anaphylaxis TYLENOL (ACETAMINOPHEN) 03/28/2014 14 - Other: See Comments Comments: Puts to sleep Date Reviewed: 02/17/2018 Reviewed by: Tabitha Atkinson Ma - Fully Assessed Reason for Visit: Left Knee Pain [1208] Cmt: Pt seen on 02/17/2018 for Rt. knee, Pt. states constant pain in left knee. Primary Visit Diagnosis:Primary osteoarthritis of left knee [M17.12] Order(s):[] betamethasone acetate-betamethasone sodium phosphate 12 mg, lidocaine (PF) 10 mg/mL (1 %) 20 mgDisp: Rfl: Prescriptions as of 03/10/2018 Sig: AMLODIPINE 10 MG-VALSARTAN 16* Take by mouth once daily. PREVACID ORAL Take 40 mg by mouth once ronald* HYDROCODONE 5 MG-ACETAMINOPHE* Take 1 tablet by mouth every * Problem List As Of Date: 03/10/2018 (None) Prescriptions ordered this encounter Disp Refills Start End [facility] INJECTION BUILDER 04/09/2018 03/10/2018 Class: Suppress Questions Route: [facility] Encounter Status:Closed by CHANTEL VALENTE MD on 04/09/18 PROGRESS Observed: 02/17/2018 Status: COMPLETED Source: [place] 1:21 PM [facility] REPOSITORY HNO ID: [id number] Author: NEVIN Hooper (Ct) Service: (none) Author Type: Clinical Numerical Control Machine Tool Operator Type: Progress Notes Filed: 02/17/2018 1:21 PM Note Text: NAME:Yamilka Thibodeaux DATE: February 17, 2018 CCF#: [id number] Lower Extremity X-Ray(s): Knee, AP / Lat / Merchant Right and Wt. Bearing COMPLETED TECH ID SIGN: KENYON LAI PROGRESS Observed: 02/17/2018 Status: COMPLETED Source: [place] 10:40 AM [facility] REPOSITORY HNO ID: [id number] Author: Chantel Valente Service: (none) Author Type: Physician Type: Progress Notes Filed: 03/14/2018 9:58 PM Note Text: CONSULT ORTHOPAEDIC: KNEE PRIMARY CARE PHYSICIAN: Chon Manriquez DO REFERRING PROVIDER: SELF ASSESSMENT AND PLAN Impression: Right knee plica and mild patellofemoral arthritis. We discussed operative versus nonoperative interventions including a cortisone injection and arthroscopic debridement. She has elected for a cortisone injection today. She will call us in 1 week to let us know how she is doing. If this does not improve her symptoms and we will refer her for arthroscopic debridement. The patient has been ordered: No orders placed today. CONSULTS: Patient does not require consults for optimization at this time. There is no problem list on file for this patient. SUBJECTIVE CHIEF COMPLAINT: Knee Pain HPI: Yamilka Thibodeaux is a 48 year old female here for evaluation and management of bilateral knee pain. She has had progressive problems with the knee(s) most of the day over the past 1 year(s) interfering with activities which include exercise, gardening, doing unit manager, participating in family activities, enjoying hobbies, walking, rising from a sitting position, standing for prolonged periods of time, getting in and out of a car, dressing, climbing stairs and safety-increased risk for fall. The problem began limiting activities 1-3 years ago. Currently the pain in the joint is rated at 9 out of 10 with moderate activity. The pain is constant and is located along the outside aspect and global. The pain is described as burning, stabbing and stiffness. Relieving factors include repositioning. There is no specific incident that brought about this pain. She also complains of weakness, stiffness, locking, popping and giving way. 48-year-old female who presents today complaining of right knee pain, worse ?1 year. She locates the pain in the anterior lateral aspect of her knee. She describes it as a 9 out of 10 aching and burning pain that is not relieved by anything. She has not tried physical therapy, NSAIDs, or injections. FUNCTIONAL STATUS: Climb a flight of stairs or walk up a hill (5.50 METs) Preoperative Ambulatory Status: Impaired Community Distances Number of Entry Steps: 2 Bedroom Location: Third floor Bathroom Location: Third floor Caregiver Assistance: Consistent/Live-In (5-7 days/wk) Home Location: Up to 150 miles PREVIOUS TREATMENTS: Attempted Weight Loss Physical Therapy: Activities Modified REVIEW OF SYSTEMS: PAIN ASSESSMENT: See HPI. MUSCULOSKELETAL: See HPI. Surgical Risk Factors: Smoking No past medical history on file. No past surgical history on file. No family history on file. Social History Marital status: Spouse name: Years of education: Number of children: Social History Main Topics Smoking status: Current Some Day Smoker Packs/day: 0.00 Years: 0.00 Smokeless tobacco: Current User Alcohol use: Yes ALLERGIES: Wildomar Flavor; Erythromycin; Nexium [Esomeprazole Magnesium]; Paxil [Paroxetine]; Penicillins; Tylenol [Acetaminophen] MEDICATIONS: txENOYPdev-Qgjqnwrtq-ABEK (EXFORGE HCT) 10-160-12.5 mg tab Take by mouth once daily. LANSOPRAZOLE (PREVACID ORAL) Take 40 mg by mouth once daily. HYDROcodone-acetaminophen (NORCO) 5-325 mg per tablet Take 1 tablet by mouth every 6 hours as needed. PHYSICAL EXAM: BP 134/97 (BP Site: Left Arm, BP Position: Sitting, BP Cuff Size: Regular Adult) Ht 165.1 cm (5' 5) Wt 103.9 kg (229 lb) BMI 38.11 kg/m? All other systems deferred. GENERAL: Appears healthy, well-nourished, no deformities. HABITUS: Obese GAIT: Normal, the patient did not have trouble getting onto the exam table. Patient had increased pain with toe walk and heel walk. KNEE EXAM: Left: Alignment: Neutral Range of motion is 0 degrees in extension and 130 degrees of flexion. Extension La degrees Pain with ROM: No Effusion: None Tender to the palpation of None Pain with patellar compression: No Stability: Anterior/Posterior stable and Varus/Valgus stable Hip Exam: flexion to 100+ degrees, full extension, internal/external rotation adequate and no pain with log roll Neurovascular Status: Sensation Intact and Moves foot and ankle up AND down Right: Range of motion 0-135. No effusion. No tenderness to palpation of the medial or lateral patellar facets. Positive tenderness palpation just lateral to the patella. Mild patellar crepitus. Palpable snap anterior lateral with knee flexion and extension. Tenderness palpation medial and lateral joint line. Stable to varus and valgus stress at 0 and 30? of flexion. Polly's with solid endpoint.. Negative posterior drawer. Hip Exam: flexion to 100+ degrees, full extension, internal/external rotation adequate and no pain with log roll Neurovascular Status: Sensation Intact, Moves foot and ankle up AND down and 2+ dorsalis pedis DATA: Diagnostic tests reviewed for today's visit: Right knee X-Ray: No abnormalities Left knee X-Ray: No abnormalities The following conditions were addressed during the office visit today: none SIGNATURE: Chantel Valente MD PATIENT NAME: Yamilka Thibodeaux DATE: February 17, 2018 TIME: 10:40 AM CHARISSEOV Observed: 02/17/2018 Status: COMPLETED Source: [place] 10:20 AM [facility] REPOSITORY Office Visit (ORMDNA) YAMILKA THIBODEAUX ([id number]) 1970 F T Date Time Provider Department 02/17/18 10:20 AM CHANTEL VALENTE During your visit today, we recorded the following information about you: Blood pressure Weight Height 134/97 103.9 kg 1.651 m Tabitha Atkinson Ma 02/17/2018 10:37 AM Signed Patient presents with: New Patient Evaluation: Patient self referred for R knee pain; reports grinding and inability to move fluidly. Consult for options, she would like to get back to exercising soon. Tabitha Atkinson Ma 02/17/2018 10:38 AM Signed Your blood pressure was 134/97. Please contact your primary care doctor to have your blood pressure checked. Chantel Valente MD 03/14/2018 9:58 PM Signed CONSULT ORTHOPAEDIC: KNEE PRIMARY CARE PHYSICIAN: Chon Manriquez DO REFERRING PROVIDER: SELF ASSESSMENT AND PLAN Impression: Right knee plica and mild patellofemoral arthritis. We discussed operative versus nonoperative interventions including a cortisone injection and arthroscopic debridement. She has elected for a cortisone injection today. She will call us in 1 week to let us know how she is doing. If this does not improve her symptoms and we will refer her for arthroscopic debridement. The patient has been ordered: No orders placed today. CONSULTS: Patient does not require consults for optimization at this time. There is no problem list on file for this patient. SUBJECTIVE CHIEF COMPLAINT: Knee Pain HPI: Yamilka Thibodeaux is a 48 year old female here for evaluation and management of bilateral knee pain. She has had progressive problems with the knee(s) most of the day over the past 1 year(s) interfering with activities which include exercise, gardening, doing unit manager, participating in family activities, enjoying hobbies, walking, rising from a sitting position, standing for prolonged periods of time, getting in and out of a car, dressing, climbing stairs and safety-increased risk for fall. The problem began limiting activities 1-3 years ago. Currently the pain in the joint is rated at 9 out of 10 with moderate activity. The pain is constant and is located along the outside aspect and global. The pain is described as burning, stabbing and stiffness. Relieving factors include repositioning. There is no specific incident that brought about this pain. She also complains of weakness, stiffness, locking, popping and giving way. 48-year-old female who presents today complaining of right knee pain, worse ?1 year. She locates the pain in the anterior lateral aspect of her knee. She describes it as a 9 out of 10 aching and burning pain that is not relieved by anything. She has not tried physical therapy, NSAIDs, or injections. FUNCTIONAL STATUS: Climb a flight of stairs or walk up a hill (5.50 METs) Preoperative Ambulatory Status: Impaired Community Distances Number of Entry Steps: 2 Bedroom Location: Third floor Bathroom Location: Third floor Caregiver Assistance: Consistent/Live-In (5-7 days/wk) Home Location: [place] 150 miles PREVIOUS TREATMENTS: Attempted Weight Loss Physical Therapy: Activities Modified REVIEW OF SYSTEMS: PAIN ASSESSMENT: See HPI. MUSCULOSKELETAL: See HPI. Surgical Risk Factors: Smoking No past medical history on file. No past surgical history on file. No family history on file. Social History Marital status: Spouse name: Years of education: Number of children: Social History Main Topics Smoking status: Current Some Day Smoker Packs/day: 0.00 Years: 0.00 Smokeless tobacco: Current User Alcohol use: Yes ALLERGIES: [place] Flavor; Erythromycin; Nexium [Esomeprazole Magnesium]; Paxil [Paroxetine]; Penicillins; Tylenol [Acetaminophen] MEDICATIONS: ujOQZRDfth-Vbasgnnce-HSRU (EXFORGE HCT) 10-160-12.5 mg tab Take by mouth once daily. LANSOPRAZOLE (PREVACID ORAL) Take 40 mg by mouth once daily. HYDROcodone-acetaminophen (NORCO) 5-325 mg per tablet Take 1 tablet by mouth every 6 hours as needed. PHYSICAL EXAM: BP 134/97 (BP Site: Left Arm, BP Position: Sitting, BP Cuff Size: Regular Adult) Ht 165.1 cm (5' 5) Wt 103.9 kg (229 lb) BMI 38.11 kg/m? All other systems deferred. GENERAL: Appears healthy, well-nourished, no deformities. HABITUS: Obese GAIT: Normal, the patient did not have trouble getting onto the exam table. Patient had increased pain with toe walk and heel walk. KNEE EXAM: Left: Alignment: Neutral Range of motion is 0 degrees in extension and 130 degrees of flexion. Extension La degrees Pain with ROM: No Effusion: None Tender to the palpation of None Pain with patellar compression: No Stability: Anterior/Posterior stable and Varus/Valgus stable Hip Exam: flexion to 100+ degrees, full extension, internal/external rotation adequate and no pain with log roll Neurovascular Status: Sensation Intact and Moves foot and ankle up AND down Right: Range of motion 0-135. No effusion. No tenderness to palpation of the medial or lateral patellar facets. Positive tenderness palpation just lateral to the patella. Mild patellar crepitus. Palpable snap anterior lateral with knee flexion and extension. Tenderness palpation medial and lateral joint line. Stable to varus and valgus stress at 0 and 30? of flexion. Polly's with solid endpoint.. Negative posterior drawer. Hip Exam: flexion to 100+ degrees, full extension, internal/external rotation adequate and no pain with log roll Neurovascular Status: Sensation Intact, Moves foot and ankle up AND down and 2+ dorsalis pedis DATA: Diagnostic tests reviewed for today's visit: Right knee X-Ray: No abnormalities Left knee X-Ray: No abnormalities The following conditions were addressed during the office visit today: none SIGNATURE: Chantel Valente MD PATIENT NAME: Yamilka Thibodeaux DATE: February 17, 2018 TIME: 10:40 AM Chantel Valente MD 03/14/2018 9:58 PM Signed PROCEDURE- JOINT INJECTION Joint Sites: knee On exam, the joint is cool to touch without sign of infection. Flexion is limited and is uncomfortable. Crepitation is present with ROM. The proposed risks versus benefits of local anesthetic and steroid injection were discussed in detail. The patient verbalizes understanding and elects to proceed with the injection. The procedure was verified with the patient, including the correct injection site, and confirmation with both the patient and accounting support specialist. Under sterile technique following verbal consent the patient underwent a right knee injection with 2cc of 6 mg/ml Celestone with 3 cc 1% Lidocaine and tolerated the procedure well without complications. The injection was performed through a superior-lateral portal to the knee without incident. The patient tolerated the injection well. Verbal instructions on post-injection care were given. Chantel Valente MD Referring Provider: SELF [[id number]] Allergies As of Date: 02/17/2018 Noted Allergy Reaction CITRUS FLAVOR 03/28/2014 7 - Swelling Comments: Throat swelling ERYTHROMYCIN 03/28/2014 10 - Anaphylaxis NEXIUM (ESOMEPRAZOLE MAGNESIUM) 03/28/2014 11 - Vomiting PAXIL (PAROXETINE) 03/28/2014 1 - Mental Status Change 14 - Other: See Comments Comments: Suicide thoughts PENICILLINS 03/28/2014 10 - Anaphylaxis TYLENOL (ACETAMINOPHEN) 03/28/2014 14 - Other: See Comments Comments: Puts to sleep Date Reviewed: 02/17/2018 Reviewed by: Tabitha Atkinson Ma - Fully Assessed Reason for Visit: New Patient Evaluation [154] Cmt: Patient self referred for R knee pain; reports grinding and inability to move fluidly. Consult for options, she would like to get back to exercising soon. 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 PREVACID ORAL Take 40 mg by mouth once ronald* HYDROCODONE 5 MG-ACETAMINOPHE* Take 1 tablet by mouth every * Problem List As Of Date: 02/17/2018 (None) Visit Notes: >> Tabitha Atkinson Ma [facility] Feb 17, 2018 10:32 AM Status: Signed Patient presents with: New Patient Evaluation: Patient self referred for R knee pain; reports grinding and inability to move fluidly. Consult for options, she would like to get back to exercising soon. >> Tabitha Atkinson Ma [facility] Feb 17, 2018 10:37 AM Status: Signed Your blood pressure was 134/97. Please contact your primary care doctor to have your blood pressure checked. Prescriptions ordered this encounter Disp Refills Start End BETAMETHASONE ACETATE AND SODIUM YAIMA* 03/14/2018 02/17/2018 Route: OTHER LIDOCAINE (PF) 10 MG/ML (1 %) INJECT* 03/14/2018 02/17/2018 Route: OTHER Encounter Status:Closed by CHANTEL VALENTE MD on 03/14/18 XR KNEE 3V AP/LAT/MERCHANT Observed: 02/17/2018 Status: F Source: [place] RT 9:37 AM CLINIC OTHER CAMPUS REPOSITORY * * *Final Report* * * DATE OF EXAM: Feb 17 2018 9:37AM SHUN 5209 - XR KNEE 3V AP/LAT/MERCHANT RT / PROCEDURE REASON: M25.561-Right knee pain, unspecified chronicity * * * * Physician Interpretation * * * * EXAMINATION: XR KNEE 3V AP/LAT/MERCHANT RT CLINICAL HISTORY: PAIN RT KNEE Right knee pain, unspecified chronicity Technique: XR KNEE 3V AP/LAT/MERCHANT RT -- RIGHT knees with 3 views on 3 images Comparison: None RESULT: No fracture or dislocation. Tiny tricompartment marginal osteophytes. Joint spaces are maintained. No knee effusion. No focal soft tissue swelling. IMPRESSION: No acute osseous finding right knee. Mild degenerative changes. Women'S Ministry Director: PSCB Transcribe Date/Time: Feb 18 2018 3:12P Dictated by : YVES JOLLY MD This examination was interpreted and the report reviewed and electronically signed by: YVES JOLLY MD on Feb 18 2018 3:12PM EST [id number] INTERNAL MEDICINE Observed: 12/24/2017 Status: F Source: [place] OFFICE VISIT 9:58 AM [facility] REPOSITORY [facility] [address] [place] [address] [place] [address] OFFICE VISIT Date of Service: 12/24/17 MR#: [id number] Acct: [id number] Name: YAMILKA THIBODEAUX Rep #: [id number] : 1970 Provider: Stephen Moon NP Age/Sex: 47/F Location: [facility] Status: Signed Intake Vital Signs12/24/17 Height 5 ft 7 in 12/24/17 Blood Pressure 120/84 12/24/17 Blood Pressure Location Rt brachial 12/24/17 Blood Pressure Position Sitting Intake Visit Reasons: Injured ankle - Seen [facility] ER Chief Complaint: ER FU Rt. ankle injury Is patient in pain?: Yes (right ankle) Pain scale (1-10): 9 Allergies erythromycin base [Erythromycin Base] Allergy (Verified 09/28/17 10:49) Other omeprazole Allergy (Verified 09/28/17 10:49) Other orange Allergy (Verified 12/22/17 20:07) Anaphylaxis Penicillins [PCN] Allergy (Verified 12/22/17 20:07) Anaphylaxis Medications amlodipine 10 mg-valsartan 160 mg tablet 1 tab PO QDAY #90 tab 09/28/17 [Rx Confirmed 09/28/17] ibuprofen 600 mg tablet 600 mg PO TID PRN #30 tab 12/24/17 [Rx Confirmed 12/24/17] PFSH Medical History Cyst of brain (Acute) GERD (gastroesophageal reflux disease) (Acute) High blood pressure (Chronic) Surgical History History of foot surgery (Acute) History of hysterectomy (Acute) Family History Father Myocardial infarction High cholesterol Mother Myocardial infarction High cholesterol Sister Cancer Grandmother Aneurysm Social History Smoking Status: Current some day smoker alcohol intake: current alcohol intake frequency: a few times a month Alcohol type: beer, wine substance use type: does not use what type of physical activity do you participate in: walking frequency: daily HPI HPI Chief Complaint: ER FU Rt. ankle injury Details: YAMILKA THIBODEAUX, is a 47 F who presents to the office today for an ER follow-up. On 12/22/2017 the patient stepped in a hole with her right foot and twisted her ankle. The patient was seen at the emergency department on 12/22/2017 and an x-ray was done which was negative. The patient was placed in an Aircast splint and is here for follow-up. She notes that due to the pain, she is unable to bear much weight on the right foot. She states that she has taken 200 mg of ibuprofen 3 times a day without much relief. She has not been icing the site and she has not been compressing the site. She notes that she was not instructed to ice or compress or elevate the affected extremity. She does note that there is some numbness that is mild in her foot and that occasionally the pain shoots up the entire leg. She rates the pain as a constant throbbing 8 out of 10 right foot pain. It is aggravated by bearing weight on the affected extremity. She denies any other aggravating or relieving factors. The patient otherwise denies any fever, chills, nausea, vomiting, shortness of breath, chest pain or pressure, palpitations, orthopnea, syncope or presyncopal episodes. ROS Const Constitutional: No weight change, body ache, chills, fatigue, sleep problems, fever(s), change in appetite, snoring, weakness, frequent falls, headache(s) or excessive sweating Eyes Eyes: No change in vision, eye pain, light sensitivity or blurry vision ENT ENT: No headache(s), abnormal hearing, ear pain, tinnitus, nasal congestion, sore throat or neck pain Resp Respiratory: No snoring, cough, shortness of breath or wheezing Cardio Cardiology: No excessive sweating, chest pain at rest, chest pain with exertion, shortness of breath, dyspnea on exertion, palpitations, orthopnea or lightheadedness Gastro GI: No abdominal pain, change in bowel habits, constipation, diarrhea, vomiting, nausea/dyspepsia or cramping Genitourinary-Female: No burning urination, painful urination, urinary incontinence, urinary frequency, abnormal vaginal bleeding, pelvic pain or other Musc Musculoskeletal: Positive for other (right ankle injury); no neck pain, abnormal walking, joint pain, back pain, limited range of motion, numbness, tingling or muscle weakness Skin Skin: No redness, dry skin, itching, lesions, wounds or rash Neuro Neurology: No weakness, frequent falls, headache(s), abnormal hearing, abnormal walking, numbness, tingling, abnormal speech, dizziness or memory loss Psych Psychiatric: No change in appetite, No memory loss, No anxiety, No depression, No Thoughts of harming yourself/Others Endo Endocrine: No fatigue, excessive sweating, cold intolerance, increased thirst/drinking, heat intolerance, flushing or increased hunger Aller/Imm Allergy/Immunologic: No wheezing, itchy eyes, hives or seasonal allergy symptoms Ethan/Lymp Hematologic/Lymphatic: No easy bleeding, easy bruising or enlarged lymph nodes Exam Const General: cooperative, comfortable, no acute distress Nutritional Appearance: average body habitus, well nourished Orientation: alert, oriented x3 Limitations: mental status not altered HENMT Head: normal to inspection Ears: hearing grossly normal bilaterally Nose: external nose normal Eyes General: appearance normal, both eyes and all related structures Resp Effort AND Inspection: normal respiratory effort, able to speak in complete sentences, normal respiratory pattern, symmetric chest movement, no audible wheezes, no cough Auscultation: Bilateral: Clear to Auscultation Cardio Palpation: normal PMI Rate: regular rate Heart Sounds: S1 normal, S2 normal, normal S1 and S2, no click, no gallops, no murmurs, no rubs GI Inspection: normal to inspection Auscultation: normal bowel sounds, no hyperactive bowel sounds, no hypoactive bowel sounds Palpation: soft, no hepatosplenomegaly Musc Musculoskeletal: No muscle weakness Other: soft tissue swelling right lateral mallelous, tenderness to touch, limited active and passive ROM d/t pain. Sensation intact Skin General: no rashes or lesions noted, elasticity normal, turgor normal Lesions: no lesions Rashes: no rashes Neuro General: alert, awake, oriented x3, CN's II-XI intact bilaterally Speech: speech normal Gait: normal gait Motor: muscle tone normal throughout Extrem General: normal to inspection, normal gait, no edema, no pedal edema Psych Appearance: grossly normal Mental Status: mental status grossly normal Affect: normal affect Attitude: cooperative Thought Process: normal Assessment AND Plan Problems 1. Right ankle sprain S93.401A Plan Rest the affected extremity Ice the affected area for 20 minutes every 4 hours Compress the area with the supplies provided Elevate the affected extremity above the heart whenever possible Ibuprofen 600 mg 3 times a day with food for the next 7 days ordered. Patient to utilize her Aircast splint and/or her walking cam boot. Weightbearing as tolerated. Discussed with patient red flag symptoms that require urgent medical attention. If patient's symptoms persist or worsen, may need repeat imaging. Patient to follow-up as previously scheduled or sooner if needed. This note was generated with Talking Layers dictation software. It may contain incorrect words, spelling, and punctuation that were not noted in checking the note before signing. Medications New: Plan Detail Follow Up As previously scheduled or sooner Coding Level of Care Code Off vis,est,level 3 Diagnoses Right ankle sprain S93.401A Encounter type: initial encounter 12/24/17 0958 <Electronically signed by Stephen RODRIGUEZ> Date Stephen Moon HELP DESK REPRESENTATIVE-C Teresaguadalupe Signature: Date (if applicable) CC: EMERGENCY DEPARTMENT Observed: 12/22/2017 Status: F Source: [place] SUMMARY 8:57 PM [facility] REPOSITORY [facility] Medical Records Department [address] [place] [address] Emergency Department Summary 12/22/172054 MR#: [id number] Acct: [id number] Name: YAMILKA THIBODEAUX Rep #: [id number] : 1970 47 From: Bryson Rios MD PCP: Chon Manriquez DO Status: REG ER - ER Visit Summary Date of Service: 12/22/17 Chief Complaint: Right ankle injury History of Present Illness: The patient is a 47 F presenting with acute onset right ankle pain that started when she stepped in a hole and twisted her right ankle 1 hour ago. Denies any other injuries. Denies foot pain. Physical Examination: Mild tenderness right lateral malleolus. Mild swelling. Skin intact. No ecchymosis. No foot tenderness Test Results: X-ray negative per radiology for fracture Emergency Department Course and Treatment: Placed in Aircast splint. Follow-up if not improving for repeat imaging Treatment Plan: Follow up if not improving Disposition: Home stable Impression: Initial encounter right ankle sprain This note was generated with Talking Layers dictation software. It may contain incorrect words, spelling, and punctuation that were not noted in review of the chart prior to signing ED Disposition - Plan for ED Patient: Chief Complaint: Lower Extremity Injury Instructions: ED Sprain Ankle W X Ray Referrals: Chon Manriquez DO [Primary Care Provider] - 1 Week if not improving What to do if you have Problems For any increased pain, shortness of breath, bleeding, nausea or vomiting, chest pain, or any unexpected problems, contact your Primary Care Provider. Call [facility] ([phone]) or report to the closest Emergency Room. Call 911 if necessary. 12/22/172056 <Electronically signed by Bryson Rios MD> Date Bryson Rios MD Cosigner Signature (If Indicated): Date CC: Chon Manriquez DO ANKLE MIN 3 VIEWS Observed: 12/22/2017 Status: F Source: [place] 8:12 PM [facility] REPOSITORY [facility] Imaging Services [address] [place] [address] Ankle min 3 Views MR#: [id number] Acct: [id number] Name: YAMILKA THIBODEAUX Rep #: [id number] : 1970 F 47 From: Dewey Guerra MD PCP: Chon Manriquez DO Status: REG ER Study: Ankle min 3 Views Date of Exam: 12/22/17 Exam# [id number] Ordering Dr: Bryson Rios MD STUDY: X-RAY - RIGHT ANKLE REASON FOR EXAM: Female, 47 years old. Stepped in hole TECHNIQUE: 3 view(s) of the ankle. COMPARISON: None. FINDINGS: Normal visualized distal tibia and fibula. Normal medial and lateral malleoli. Normal tibiotalar articulation and ankle mortise. Normal visualized talus. Tiny plantar calcaneal spur. The visualized subtalar, talonavicular, calcaneocuboid and tarsal articulations are normal. Post surgical changes involving the fifth metatarsal shaft The soft tissue structures are unremarkable. RAD/Ankle min 3 Views IMPRESSION: No evidence for acute fracture or dislocation at this time Electronically Signed: Dewey Guerra MD at 20:36 EDT , Service support , CC: Romero Rios MD; Chon Manriquez DO Women'S Ministry Director: Signed INTERNAL MEDICINE Observed: 09/28/2017 Status: F Source: [place] OFFICE VISIT 6:27 PM [facility] REPOSITORY [facility] [address] [place] [address] OFFICE VISIT Date of Service: 09/28/17 MR#: [id number] Acct: [id number] Name: YAMILKA THIBODEAUX Rep #: [id number] : 1970 Provider: Stephen Moon NP Age/Sex: 47/F Location: [facility] Status: Signed Intake Vital Signs09/28/17 Height 5 ft 6 in 09/28/17 Weight: 226 lb 09/28/17 Body Mass Index (BMI) 36.4 09/28/17 Blood Pressure 131/92 Intake Visit Reasons: BP med refill Chief Complaint: BP Med refill Is patient in pain?: No Allergies erythromycin base [Erythromycin Base] Allergy (Verified 09/28/17 10:49) Other omeprazole Allergy (Verified 09/28/17 10:49) Other Medications amlodipine 10 mg-valsartan 160 mg tablet 1 tab PO QDAY #90 tab 09/28/17 [Rx Confirmed 09/28/17] PFSH Medical History Cyst of brain (Acute) GERD (gastroesophageal reflux disease) (Acute) High blood pressure (Chronic) Surgical History History of foot surgery (Acute) History of hysterectomy (Acute) Family History Father Myocardial infarction High cholesterol Mother Myocardial infarction High cholesterol Sister Cancer Grandmother Aneurysm Social History Smoking Status: Current some day smoker alcohol intake: current alcohol intake frequency: a few times a month Alcohol type: beer, wine substance use type: does not use what type of physical activity do you participate in: walking frequency: daily HPI HPI Chief Complaint: BP Med refill Details: YAMILKA THIBODEAUX, is a 47 F who presents to the office today for refills of her blood pressure medication. She is new to the office here, however is a patient of Dr. Mathew. She has a past medical history of hypertension, her history is otherwise negative. The patient denies any acute complaints at this time. She states that her blood pressure stable on her current medication regimen. The patient does state that she tries to adhere to a low-sodium diet. She does not routinely exercise however. She does note that she is due for an order for mammogram. She otherwise denies any acute complaints at this time. The patient otherwise denies any fever, chills, nausea, vomiting, shortness of breath, chest pain or pressure, palpitations, orthopnea, lower extremity edema, syncope or presyncopal episodes. ROS Const Constitutional: No chills, fatigue, fever(s), frequent falls, malaise, weakness, sleep problems or change in appetite Eyes Eyes: Positive for blurry vision; no change in vision, double vision, discharge or visual disturbances ENT ENT: No abnormal hearing, ear pain, ear pressure, tinnitus or dizziness/vertigo Resp Respiratory: No cough, shortness of breath or wheezing Cardio Cardiology: Positive for dyspnea on exertion (Sometimes); no chest pain at rest, chest pain with exertion, shortness of breath, generalized swelling, irregular heart rhythm, lightheadedness, orthopnea, fast heart rate or palpitations Gastro GI: No abdominal pain, change in bowel habits, constipation, diarrhea, nausea/dyspepsia or vomiting Genitourinary-Female: No difficulty urinating, burning urination, painful urination, urinary incontinence, urinary frequency, urinary urgency, urinary hesitancy, urinary retention, Frequent nighttime urination/ nocturia, sexual problems, genital lesions, abnormal vaginal bleeding, pelvic pain, vaginal dryness, vaginal odor or Vaginal Itching Musc Musculoskeletal: Positive for back pain; no joint pain, joint swelling, limited range of motion, muscle weakness, numbness or tingling Skin Skin: No change in skin color, itching, rash or wounds Breast Breast: No breast lump or breast pain Neuro Neurology: No frequent falls, weakness, abnormal hearing, numbness, tingling, unsteady gait/balance, dizziness, loss of vision, memory loss or visual disturbances Psych Psychiatric: No memory loss, No anxiety, No change in appetite, No depression, No Thoughts of harming yourself/Others Endo Endocrine: No fatigue, heat intolerance, increased thirst/drinking, increased hunger or increased urination Aller/Imm Allergy/Immunologic: No wheezing, itchy eyes or seasonal allergy symptoms Ethan/Lymp Hematologic/Lymphatic: No easy bleeding, easy bruising or enlarged lymph nodes Exam Const General: cooperative, comfortable, no acute distress Nutritional Appearance: average body habitus, well nourished Orientation: alert, oriented x3 Limitations: mental status not altered HENMA Head: normal to inspection Ears: hearing grossly normal bilaterally Nose: external nose normal Eyes General: appearance normal, both eyes and all related structures Resp Effort AND Inspection: normal respiratory effort, able to speak in complete sentences, normal respiratory pattern, symmetric chest movement, no audible wheezes, no cough Auscultation: Bilateral: Clear to Auscultation Cardio Palpation: normal PMI Rate: regular rate Heart Sounds: S1 normal, S2 normal, normal S1 and S2, no click, no gallops, no murmurs, no rubs GI Inspection: normal to inspection Auscultation: normal bowel sounds, no hyperactive bowel sounds, no hypoactive bowel sounds Palpation: soft, no hepatosplenomegaly Musc Musculoskeletal: No muscle weakness Skin General: no rashes or lesions noted, elasticity normal, turgor normal Lesions: no lesions Rashes: no rashes Neuro General: alert, awake, oriented x3, CN's II-XI intact bilaterally Speech: speech normal Gait: normal gait Motor: muscle tone normal throughout Extrem General: normal to inspection, normal gait, no edema, no pedal edema Psych Appearance: grossly normal Mental Status: mental status grossly normal Affect: normal affect Attitude: cooperative Thought Process: normal Assessment AND Plan 1. HTN (hypertension) I10 Plan Hypertension: Controlled on current medications, will not make any adjustments at this time. Will continue with current medication regimen, risk factor reduction, and lifestyle modifications. Discussed dietary changes that should be considered which include reducing the amount of sodium intake. 2. Screening for breast cancer Z05.16 Plan Mammogram ordered per routine screening recommendation. Patient does follow-up with SENIOR REACTOR OPERATOR for other women's health screenings. Orders Orders: Plan Detail Other Medications New: Follow Up Annually per patient's request Coding Level of Care Code Off vis,new,level 3 Diagnoses HTN (hypertension) I10 Screening for breast cancer Z12.31 09/28/17 9337 <Electronically signed by Stephen RODRIGUEZ> Date Stephen RODRIGUEZ Cosigner Signature: Date (if applicable) CC: ALLERGIES ALLERGIES DATE TYPE / NAME / CODE REACTION SEVERITY SOURCE CODE 12/22/2017 Drug Penicillins/[id number] Anaphylaxis Unknown [place] Allergy/41 476(RXNORM) Community [id number]([facility] [place]) Repository 12/22/2017 Drug orange/[id number](R Anaphylaxis Unknown [place] Allergy/41 XNORM) Community [id number]([facility] [place]) Repository 09/28/2017 Drug erythromycin Other Unknown [place] Allergy/41 base/[id number][facility]RXN [id number] Repository 09/28/2017 Drug omeprazole/[id number] Other Unknown Mickey Allergy/41 76(RXNORM) Community [id number]([facility] CT) Repository 03/28/2014 DRUG CITRUS FLAVOR SWELLING [facility]/41 Clinic Other [id number]([facility] OMED CT) Repository 03/28/2014 DRUG/05839 ERYTHROMYCIN ANAPHYLAXIS [place]urch 1003([facility] Other D CT) [place] Repository 03/28/2014 DRUG/01063 ESOMEPRAZOLE Vomiting Beatrice 1003(OME MAGNESIUM Clinic Other D CT) [place] Repository 03/28/2014 DRUG PAROXETINE Mental Chg [facility]/41 [facility] Other [id number]([facility] CT) Repository 03/28/2014 Drug PENICILLINS ANAPHYLAXIS Beatrice Class/4195 Clinic Other 20195([facility] ED CT) Repository 03/28/2014 DRUG ACETAMINOPHEN OTHER: SEE C [facility]/41 [facility] Other [id number]([facility] CT) Repository ENCOUNTERS ENCOUNTERS ADMIT/DISCHARGE ACCOUNT ADMITTING ENCOUNTER LOCATION SOURCE NUMBER CLASS 04/27/2018 [id number] Ambulatory [facility] ing:OPBI Repository 04/04/2018 [id number] Ambulatory BMSBuilding:W Mickey [facility] Repository 04/04/2018 [id number] Ambulatory [facility] ing:CVS Repository 03/11/2018 [id number] Ambulatory BMSBuilding:Michi Arevalo MS.CF.[facility] Repository 03/11/2018 [id number] [facility] ing:LAB Repository 03/11/2018/03/11/20 [id number] Ambulatory BMSBuilding:B Mickey 18 MS.[facility] Repository 03/11/2018 [id number] Ambulatory BMSBuilding:W Mickey [facility] Repository 03/10/2018/04/12/20 [id number] Ambulatory [address] [place] Repository 02/17/2018/03/15/20 [id number] Ambulatory [address] [place] Repository 02/17/2018/02/18/20 [id number] Ambulatory [address] Other [place] Repository 12/24/2017/12/25/19 [id number] Ambulatory BMSBuilding:B Ada 18 [place].[facility] [place] 12/22/2017/12/23/19 [id number] Emergency Ada Ada [address] [place] [address] ing:ED Repository 09/28/2017/09/29/19 [id number] Ambulatory BMSBuilding:B Mickey 18 [place].[facility] [place] 09/10/2017 [id number] Ambulatory BMSBuilding:B Mickey [facility] Repository PAYERS PAYERS ENCOUNTER GUARANTOR PAYER SUBSCRIBER SOURCE 04/27/2018 YAMILKA Souza Primary ROMEO Arevalo [id number] Insurance:ANTHEMPolic CALLAHANDOB: [facility] y Number: [id number] [id number] Repository 93312Cfg: (330) Date:1691-89-88[phone] () [id number] [place] [address] 38602YT: 04/27/2018 Secondary NOT GIVENUNK Mickey Insurance:SELF PAY [facility] Number: Effective Repository Date:2018-03-11 04/04/2018 YAMILKA Souza Primary ROMEO Arevalo [id number] Insurance:ANTHEMPolic [place]: [facility] y Number: [id number], [place] [id number] Repository 52763Ybi: (330) Date:6690-24-99[phone] () [id number] [place] [address] 37776AB: 04/04/2018 Secondary NOT GIVENUNK Ada Insurance:SELF PAY [facility] Number: Effective Repository Date:2018-04-04 04/04/2018 YAMILKA Souza Primary ROMEO [place] [id number] Insurance:ANTHEMPolic CALLAHANDOB: Community CINDA y Number: [id number] Repository 33104Cob: (330) Date:0770-74-26WY [phone] () [address] [place] [address] 08177NL: 04/04/2018 Secondary NOT GIVENUNK Ada Insurance:SELF PAY [facility] Number: Effective Repository Date:2018-03-15 03/11/2018 YAMILKA Souza Primary ROMEO [place] [id number] Insurance:ANTHEMPolic CALLAHANDOB: Community CINDA y Number: [id number] [id number] Repository 64[address]Osh: (330) Date:1824-75-47TG [phone] () [id number] [place] [address]GG: 03/11/2018 Secondary NOT GIVENUNK Mickey Insurance:SELF PAY [facility] Number: Effective Repository Date:2018-03-11 03/11/2018 YAMILKA Souza Primary ROMEO [place] [id number] Insurance:ANTHEMPolic CALLAHANDOB: Community CINDA y Number: [id number] [id number] Repository 71634Tgk: 330) Date:3904-55-61JL [phone] () [id number] [place] [address]JZ: 03/11/2018 Secondary NOT GIVENUNK Ada Insurance:SELF PAY [facility] Number: Effective Repository Date:2018-03-11 03/11/2018 YAMILKA L Primary ROMEO [place] [id number] Insurance:ANTHEMPolic CALLAHANDOB: Community CINDA y Number: [id number] [id number] Repository 39248Rku: (330) Date:5852-29-10[phone] () 448[address]KILACRP, [place] [address]IZ: 03/11/2018 Secondary NOT GIVENUNK Mickey Insurance:SELF PAY [facility] Number: Effective Repository Date:2018-03-11 03/11/2018 YAMILKA L Primary ROMEO Mickey [id number] Insurance:ANTHEMPolic CALLAHANDOB: Community CINDA y Number: [id number], [place] [id number] Repository 77880Uxx: (330) Date:3143-29-43RH [phone] () 457203ZHMGAHI, [place] [address]JX: 03/11/2018 Secondary NOT GIVENUNK Ada Insurance:SELF PAY [facility] Number: Effective Repository Date:2018-03-11 12/24/2017 YAMILKA L Primary ROMEO Ada [id number] Insurance:ANTHEMPolic CALLAHANDOB: Community CINDA y Number: [id number], [place] [id number] Repository 92981Ysh: (330) Date:0717-78-49WD [phone] () [id number], [place] [address]EM: 12/24/2017 Secondary NOT GIVENUNK Mickey Insurance:SELF PAY [facility] Number: Effective Repository Date:2017-12-24 12/22/2017 YAMILKA L Primary ROMEO Ada [id number] Insurance:ANTHEMPolic CALLAHANDOB: Community CINDA y Number: [id number], [place] [id number] Repository 65[address]Mdc: (330) Date:6697-40-45OK [phone] () 2605[address]AZYSTUS, [place] [address]JR: 12/22/2017 Secondary NOT GIVENUNK Ada Insurance:SELF PAY [facility] Number: Effective Repository Date:2017-12-22 09/28/2017 YAMILKA L Primary ROMEO Ada [id number] Insurance:ANTHEMPolic CALLAHANDOB: Community CRIS y Number: [id number], [place] [id number] Repository 157[address]Gdz: (330) Date:7138-57-55CN [phone] () 378136XEDXPRP, [place] [address]SF: 09/28/2017 Secondary NOT GIVENUNK Ada Insurance:SELF PAY [facility] Number: Effective Repository Date:2017-09-28 09/10/2017 Yamilka Souza Primary ROMEO Arevalo [id number] Insurance:ANTHEMPolic CALLAHANDOB: [facility] y Number: [id number] [id number] Repository [address]Dwi: (330) Date:2348-63-88OC [phone] () [id number], [place] [address]NF: 09/10/2017 Secondary NOT GIVENUNK Ada Insurance:SELF PAY [facility] Number: Effective Repository Date:2017-09-10
== END ==
PROVIDERS: Family Provider Family Medicine; PCP Family Medicine; Visit Provider Nurse Practitioner Family
DX: Z12.31 Encounter for screening mammogram for malignant neoplasm of breast (principal)
CPT/HCPCS: 77063; 77067

== ENCOUNTER 2018-11-10 12:42 | Observation (INO) | payer BC, SELFPAY ==
[2018-11-10] VITALS (10 sets, daily range): BP systolic 116–158; BP diastolic 91–119; PULSE 67–78; RESP 12–18; TEMP 36.4–36.9; O2SAT 95–98; BMI 35.8; BMI 35.1
--- NOTE | 2018-11-10 13:04 | EKG12_ITS ---
Test Reason : CP Blood Pressure : / mmHG Vent. Rate : 071 BPM Atrial Rate : 071 BPM P-R Int : 136 ms QRS Dur : 104 ms QT Int : 392 ms P-R-T Axes : 027 059 039 degrees QTc Int : 425 ms Normal sinus rhythm Incomplete right bundle branch block T wave abnormality, consider anterior ischemia Abnormal ECG Confirmed by SMITHA BARNES, VERONICA ([id number]), editorial assistant MARGARITO LOW ([id number]) on 11/14/2018 2:22:11 PM Referred By: HARMONY/JAZ Confirmed By:VERONICA BONE MD
--- NOTE | 2018-11-10 13:15 | RAD_ITS ---
STUDY: X-RAY CHEST REASON FOR EXAM: Female, 48 years old. TECHNIQUE: COMPARISON: None. FINDINGS: The lungs are clear and expanded. There is no demonstrated pleural abnormality. Normal size heart. Normal mediastinum and claudine. Normal visualized pulmonary arteries. Normal visualized aortic arch and descending thoracic aorta. Normal visualized thoracic spine. Normal visualized ribs, clavicles, and shoulders. There is no demonstrated abnormality of the visualized soft tissue structures of the upper abdomen. RAD/Chest 1 View (Portable) IMPRESSION: Normal x-ray examination of the chest. Electronically Signed: Jason Robles, at 14:03 EDT Tel , Service support ,
[2018-11-10] MEDS: Aspirin 81 MG TAB.CHEW 324 MG PO (13:20)
[2018-11-10] MEDS: Nitroglycerin SL (ED/IMG/CATH) 0.4 MG TABLET SUBLINGUAL ×2 (13:21→13:30)
--- NOTE | 2018-11-10 13:30 | ED.VISSUMM ---
- ER Visit Summary Date of Service: 11/10/18 Chief Complaint: Chest pain History of Present Illness: The patient is a 48 F who presents with chest pain that began yesterday. Patient states the pain improved last night but then returned this morning. Patient states pain is been constant throughout the day today. Patient describes it as a heaviness over the substernal area. Patient states the pain radiates to her neck and back. Patient admits to some nausea and vomiting. Patient also admits to some shortness of breath and diaphoresis. Patient denies any cough or fever. Patient denies any heartburn or reflux. Patient denies any palpitations or lightheadedness. Patient has a history of hypertension and is a smoker. Patient also has a family history of coronary artery disease at a young age. Patient denies any PE risk factors. Physical Examination: Vital signs are stable. Patient is afebrile. Patient is in no acute distress. Oral mucosa is pink and moist. Neck is supple. Trachea is midline. There is no JVD noted. Heart was regular rate and rhythm. Lungs are clear and equal bilateral. Abdomen is soft. Bowel sounds are normal. There is no tenderness. There is no guarding noted. Skin is warm dry. Cranial nerves II through XII are intact. There are no focal motor or sensory deficits noted. The remaining physical exam is within normal limits. Test Results: EKG showed normal sinus rhythm with a rate of 71. There is T wave inversion in leads V3 and V4. There is flattening of the T waves in V5 and V6. This is unchanged compared to previous EKG dated 03/11/2018. CBC, basic metabolic profile, d-dimer, and troponin were obtained and were all normal. Portable chest x-ray was obtained and was negative. Emergency Department Course and Treatment: Patient was given aspirin and nitroglycerin. Patient states that nitroglycerin relieved her chest heaviness. Patient has a HEART score of 5. Case was discussed with Dr. Soriano. He will admit the patient for observation. Patient understands and is agreeable with the plan. All questions were answered. Disposition: Admit for observation Impression: Chest pain This note was generated with [employer] dictation software. It may contain incorrect words, spelling, and punctuation that were not noted in review of the chart prior to signing ED Disposition - Plan for ED Patient: Disposition: Acute Care Hospital [facility] Diagnosis: Chest pain Referrals: Chon Manriquez DO [Primary Care Provider] -
[2018-11-10 13:34] LABS: Absolute Lymphocyte Count 1.83 X10^3/ul (0.83-4.51); Absolute Neutrophil Count 3.1 X10^3/uL (2.0-7.7); Basophil# 0.04 X10^3/uL; Basophil% 0.7 % (0-1); Eosinophil# 0.11 X10^3/uL; Hematocrit 42.2 % (37-47); Lymphocyte # 1.83 X10^3/ul (4.0); Lymphocyte % 33.8 % (19-41); Mean Corp Hgb Conc 33.2 g/gl (32-36); Mean Corpuscular Hgb 31.7 pg (27.0-32.0); Mean Corpuscular Volume 95.7 fL (81-99); Mean Platelet Vol. 9.8 fl (6.2-12.0); Monocyte# 0.31 X10^3/uL; Monocyte% 5.7 % (0-10); Neutrophil # 3.12 X10^3/uL (2.7-7.7); Neutrophil % 57.6 % (47-70); POSITIVE COUNT NO; POSITIVE DIFFERENTIAL NO; POSITIVE MORPHOLOGY NO; Platelet Count 307 K/mm3 (150-450); RBC Distribution Width CV 12.4 % (11.6-14.6); RBC Distribution Width SD 42.4 fl (35.1-43.9); Red Blood Count 4.41 M/mm3 (4.2-5.4); White Blood Count 5.4 K/mm3 (4.4-11.0)
--- NOTE | 2018-11-10 13:34 | ED.RN ---
pt reports slight relief from 1st nitro
[2018-11-10 13:48] LABS: Anion Gap 4 (5-15); BUN 8 mg/dL (7-18); BUN/Creat Ratio 13.4 RATIO (10-20); Calcium,Total 8.7 mg/dL (8.5-10.1); Chloride 106 mmol/L (98-107); EST Glomerular Filtration Rate 113 mL/min (>60); Est Glom Filt Rate - Afr Amer 137 mL/min (>60); Glucose 91 mg/dL (74-106); Potassium 3.9 mmol/L (3.5-5.1); Sodium Level 137 mmol/L (136-145)
[2018-11-10 13:59] LABS: D-Dimer Quantitative (DVT/PE) < 0.27 FEU/ug/m (0.27-0.49)
--- NOTE | 2018-11-10 16:32 | HP.PCM_ITS ---
Problem List (1) Chest pain Status: Acute Qualifiers: Chest pain type: unspecified Qualified Code(s): R07.9 - Chest pain, unspecified History of Present Illness Date of Admission: 11/10/18 Chief Complaint: chest pain The patient is a 48 year old F presents with several day history of midsternal chest pain. Pain radiates to her back. Is worse with deep respirations and activity. Patient states that when she stops the activity, chest pain resolves. Still diaphoretic nauseated. Has had pain like this previously and has had previous stress test that was been negative. Patient is never had a heart catheterization previously. 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 GERD (gastroesophageal reflux disease) K21.9 History of hysterectomy Z90.710 High blood pressure I10 Allergies erythromycin base [Erythromycin Base] Allergy (Verified 11/10/18 15:34) Shortness of breath lemon Allergy (Verified 11/10/18 15:34) Anaphylaxis t[place] Allergy (Verified 11/10/18 15:34) Anaphylaxis orange Allergy (Verified 12/22/17 20:07) Anaphylaxis Penicillins [PCN] Allergy (Verified 12/22/17 20:07) Anaphylaxis omeprazole Adverse Reaction (Verified 11/10/18 15:34) made my bones ache Home Medications: Ambulatory Orders Medication Instructions Recorded Amlodipine/Valsartan [Exforge 1 tab PO DAILY 11/10/18 10-160 MG Tablet] Lorazepam [Ativan] 1 mg PO DAILY PRN PRN 11/10/18 Omeprazole 40 mg PO DAILY 11/10/18 Surgical History: Surgical History (Last Reviewed 11/10/18 @ 16:33 by Roscoe Soriano DO) History of foot surgery Z98.890 Screw in Rt foot Smoking Status: Current some day smoker Tobacco Use: Cigarettes - *Family History Maternal Family History: Family History (Last Reviewed 11/10/18 @ 16:33 by Roscoe Soriano DO) Father Myocardial infarction High cholesterol Mother Myocardial infarction High cholesterol Sister Cancer Grandmother Aneurysm Review of Systems Constitutional: Denies: Anorexia, Chills, Fever, Night Sweats Eyes: Denies: Blurred vision, Double vision HEENT: Denies: Head Aches, Sinus Congestion, Sinus Drainage Cardiovascular: Reports: Chest Pain. Denies: Edema Respiratory: Denies: Cough, Shortness of breath at rest, Sputum production Gastrointestinal: Reports: Nausea. Denies: Abdominal Pain, Vomiting Genitourinary: Denies: Dysuria Musculoskeletal: Denies: Joint Pain, Joint Tenderness Skin: Denies: Rash, Wounds Neurological: Denies: Numbness, Tingling, Focal weakness Psychiatric: Denies: Anxiety, Depression Endocrine: Denies: Change in Body Habitus, Heat/ Cold Intolerance Hematologic/ Lymphatic: Denies: Easy Bruising, Easy Bleeding Comment: A 10 point review of systems otherwise negative except for as mentioned above HPI and review of systems. VTE Information - Inpt Only VTE Present on Admission: No VTE Mechan Device Prophylaxis: None VTE Pharm Prophylaxis ordered?: No Reason prophylaxis not ordered:: Procedure Not Indicated Patient Problems: Active and Suspected Problems (Last Updated 09/28/17 @ 10:54 by Brenna Reynolds) Chest pain (Acute) Chest pain (Acute) - Physical Exam General: Alert, No apparent distress HEENT: Atraumatic, Normocephalic Oral: Moist Mucosa, No Gingival or Mucosal Lesions/ Ulcerations Neck: No Nodes, Thyroid Normal Size and Texture Lungs: Clear to auscultation, Normal air movement, No rhonchi, No wheeze, No rales Cardiovascular: Regular rate, Regular Rhythm, Normal S1, Normal S2, No murmurs Abdomen: Bowel Sounds Present, Soft, Non Tender, Non-Distended, No Hepato- splenomegaly Extremities: No edema, No Calf Tenderness Skin: No rashes, No breakdown Musculoskeletal: - - Reproducible anterior chest wall tenderness Psych/Mental Status: Normal Affect, Appropriate Vital Signs Temp Pulse Resp BP Pulse Ox 36.4 C L 68 14 141/94 H 97 11/10/18 12:42 11/10/18 15:42 11/10/18 15:42 11/10/18 15:42 11/10/18 15:42 Oxygen Flow Rate (L/min) 2 Oxygen Delivery Method Room Air Weight: 103.691 kg Body Mass Index (BMI) 35.8 Laboratory Tests Past 24 Hrs 11/10/18 11/10/1811/10/19 13:23 13:23 13:23 WBC 5.4 RBC 4.41 Hgb 14.0 Hct 42.2 MCV 95.7 MCH 31.7 MCHC 33.2 RDW 12.4 RDW Differential 42.4 Plt Count 307 MPV 9.8 Immature Gran % (Auto) 0.200 Neut % (Auto) 57.6 Lymph % (Auto) 33.8 Sully % (Auto) 5.7 Eos % (Auto) 2.0 Baso % (Auto) 0.7 Absolute Neuts (auto) 3.1 Absolute Lymphs (auto) 1.83 Total Counted Not Reportable D-Dimer Quant (PE/DVT) < 0.27 L Sodium 137 Potassium 3.9 Chloride 106 Carbon Dioxide 27.0 Anion Gap 4 L BUN 8 Creatinine 0.60 Estim Creat Clear Calc 110.30 Est GFR (MDRD) Af Amer 137 Est GFR (MDRD) Non-Af 113 BUN/Creatinine Ratio 13.4 Glucose 91 Calcium 8.7 Troponin I < 0.015 Assessment/Plan All Active Problems (Last Updated 09/28/17 @ 10:54 by Brenna Reynolds) Chest pain (Acute) Chest pain (Acute) 1. Chest pain * Heart score of 4, MELANIE score of 1 * Patient received aspirin and will continue with aspirin 4. Plan is for a * Chemical stress test on the . * Patient assessed to reproduce the components of certainly this could be a musculoskeletal or even esophageal but priority is to rule out cardiac * Patient advised that if stress test comes back normal she will be discharged but if her stress test is abnormal or if her troponins go up then cardiology will be consulted and she may require left heart catheterization at that point 2. VTE prophylaxis: Low risk as patient is being brought under observation status and length of stay is anticipated to be less than 24 hours. Letter to auscultation with extend beyond the for the reason then may need to reconsider initiating VTE prophylaxis Code Visit OBSV E&M: 36874 Initial observation care L2
--- NOTE | 2018-11-10 16:44 | EKG12_ITS ---
Test Reason : CP Blood Pressure : / mmHG Vent. Rate : 070 BPM Atrial Rate : 070 BPM P-R Int : 138 ms QRS Dur : 104 ms QT Int : 374 ms P-R-T Axes : 035 058 045 degrees QTc Int : 403 ms Normal sinus rhythm T wave abnormality, consider anterior ischemia Abnormal ECG Confirmed by SMITHA BARNES, VERONICA ([id number]), movie editor ERIKA ALVES ([id number]) on 11/15/2018 12:02:07 PM Referred By: DR ROSENBAUM Confirmed By:VERONICA BONE MD
--- NOTE | 2018-11-10 20:30 | EKG12_ITS ---
Test Reason : CP ADMISSION Blood Pressure : / mmHG Vent. Rate : 065 BPM Atrial Rate : 065 BPM P-R Int : 142 ms QRS Dur : 110 ms QT Int : 398 ms P-R-T Axes : 037 061 052 degrees QTc Int : 413 ms Normal sinus rhythm Incomplete right bundle branch block T wave abnormality, consider anterior ischemia Abnormal ECG Confirmed by SMITHA BARNES, VERONICA ([id number]), food editor ERIKA ALVES ([id number]) on 11/15/2018 12:05:42 PM Referred By: ROBI Confirmed By:VERONICA BONE MD
[2018-11-10] MEDS: LORazepam 1 MG Tablet PO (22:04)
[2018-11-11 03:02] VITALS: PULSE 67
[2018-11-11 04:09] VITALS: BP 133/82; PULSE 66; RESP 19; TEMP 36.8; O2SAT 95
[2018-11-11 05:35] LABS: Absolute Lymphocyte Count 1.92 X10^3/ul (0.83-4.51); Absolute Neutrophil Count 2.9 X10^3/uL (2.0-7.7); Basophil# 0.02 X10^3/uL; Basophil% 0.4 % (0-1); Eosinophil# 0.11 X10^3/uL; Eosinophils% 2.1 % (0-5); Hematocrit 41.9 % (37-47); Hemoglobin 13.7 g/dl (12.0-15.0); Lymphocyte # 1.92 X10^3/ul (4.0); Lymphocyte % 36.2 % (19-41); Mean Corp Hgb Conc 32.7 g/gl (32-36); Mean Corpuscular Hgb 31.6 pg (27.0-32.0); Mean Corpuscular Volume 96.8 fL (81-99); Mean Platelet Vol. 9.9 fl (6.2-12.0); Monocyte# 0.39 X10^3/uL; Monocyte% 7.4 % (0-10); Neutrophil # 2.86 X10^3/uL (2.7-7.7); Neutrophil % 53.9 % (47-70); Platelet Count 300 K/mm3 (150-450); RBC Distribution Width CV 12.3 % (11.6-14.6); RBC Distribution Width SD 42.1 fl (35.1-43.9); Red Blood Count 4.33 M/mm3 (4.2-5.4); White Blood Count 5.3 K/mm3 (4.4-11.0)
[2018-11-11 05:38] LABS: POSITIVE COUNT NO; POSITIVE DIFFERENTIAL NO; POSITIVE MORPHOLOGY NO
[2018-11-11 05:43] LABS: International Normalized Ratio 0.9; Partial Thromboplast Time 28.5 Seconds (24.1-36.2); Prothrombin Time (Protime)PT. 12.2 SECONDS (11.7-14.9)
[2018-11-11 05:45] VITALS: BP 129/85; PULSE 65; RESP 18; TEMP 36.8; O2SAT 95
--- NOTE | 2018-11-11 05:55 | EKG12_ITS ---
Test Reason : AM EKG Blood Pressure : / mmHG Vent. Rate : 069 BPM Atrial Rate : 069 BPM P-R Int : 146 ms QRS Dur : 106 ms QT Int : 394 ms P-R-T Axes : 050 066 063 degrees QTc Int : 422 ms Normal sinus rhythm ST & T wave abnormality, consider anterior ischemia Abnormal ECG Confirmed by SMITHA BARNES, VERONICA ([id number]), desk editor ERIKA ALVES ([id number]) on 11/15/2018 12:01:04 PM Referred By: DR HOGUE Confirmed By:VERONICA BONE MD
[2018-11-11] MEDS: Aspirin E.C. 81 MG Tablet PO (05:56)
[2018-11-11 06:10] LABS: Anion Gap 8 (5-15); BUN 9 mg/dL (7-18); BUN/Creat Ratio 14.5 RATIO (10-20); Calcium,Total 8.4 mg/dL (8.5-10.1); Chloride 106 mmol/L (98-107); Cholesterol 243 mg/dL (200); Creatinine, Serum 0.62 mg/dL (0.55-1.02); EST Glomerular Filtration Rate 108 mL/min (>60); Est Glom Filt Rate - Afr Amer 131 mL/min (>60); Estimated Creatinine Clearance 106.74 ml/min; Glucose 97 mg/dL (74-106); High Density Lipoprotein 37 mg/dL; Potassium 3.8 mmol/L (3.5-5.1); Sodium Level 140 mmol/L (136-145); Triglycerides 452 mg/dL
[2018-11-11 09:04] VITALS: PULSE 72
--- NOTE | 2018-11-11 09:28 | STRESSREP ---
Stress Test Report Date: 11-11-18 Procedure: Exercise tolerance test/imaging study Indications: Chest pain Consent: Per the patient Procedure: The patient exercised on a Jose protocol for 7 minutes and 9 seconds completing Stage II and 1 minute and 9 seconds of Stage III achieving a peak heart rate of 146 bpm (85 % predicted maximal heart rate) with a peak blood pressure 174/90 mmHg and a peak MET capacity of 8 METs. The baseline ECG demonstrated normal sinus rhythm; nonspecific T wave abnormality. The peak exercise ECG demonstrated no obvious ECG changes. There were no cardiac dysrhythmias pretest, during exercise, or recovery. The functional capacity was considered average. There was no complaint of chest discomfort during exercise or recovery. The examination was discontinued secondary to dyspnea and neck pain. Impression: 1. Technically adequate (percent predicted maximal heart rate greater than 85%) exercise tolerance test 2. Peak exercise ECG with no obvious ECG changes 3. There were no cardiac dysrhythmias pretest, during exercise, or recovery 4. Nuclear images pending Myocardial perfusion imaging study: Technique: The patient was injected with 14.3 mCi of technetium 99m Cardiolite and subsequently rest SPECT Cardiolite nuclear imaging was obtained in the horizontal long, vertical long, and short axis views. The patient exercised on a Jose protocol for 7 minutes and 9 seconds completing Stage II and 1 minute and 9 seconds of Stage III achieving a peak heart rate of 146 bpm (85 % predicted maximal heart rate) with a peak blood pressure 174/90 mmHg and a peak MET capacity of 8 METs. The patient was injected with 44.4 mCi of technetium 99m Cardiolite and subsequently stress SPECT Cardiolite nuclear imaging was obtained in the horizontal long, vertical long, and short axis views. A gated Cardiolite study at peak stress was obtained. Interpretation: Rest and stress SPECT Cardiolite nuclear imaging status post realignment, normalization, and attenuation correction, demonstrates the appearance of relative uniform tracer uptake and myocardial perfusion appearing within normal limits. There is end systolic thickening and brightening. The gated Cardiolite study demonstrates myocardial thickening and inward wall motion. The reported LVEF is 80 %. Impression: 1. Rest and stress SPECT Cardiolite nuclear imaging demonstrate relative uniform tracer uptake and myocardial perfusion appearing within normal limits. 2. The gated Cardiolite study reports an LVEF of 80 %. This note was generated with [employer] software. It may contain incorrect words, spelling, and punctuation that were not noted in checking the note before signing.
[2018-11-11 10:27] VITALS: BP 143/83; PULSE 73; RESP 16; TEMP 36.8; O2SAT 97
[2018-11-11] MEDS: Losartan Potassium 50 MG Tablet PO (10:31)
[2018-11-11] MEDS: Pantoprazole Sodium 40 MG Tablet PO (10:31)
[2018-11-11] MEDS: amLODIPine 10 MG Tablet PO (10:31)
--- NOTE | 2018-11-11 11:51 | PCM.DC ---
- Discharge Diagnoses Current Active Problems: Current Active and Chronic Problems (Last Reviewed 11/10/18 @ 16:33 by Roscoe Soriano DO) Chest pain (Acute) Chest pain (Acute) You will use the following diet at home:: No restrictions Your food should be the consistency of: Regular Your liquids should be the consistency of: Regular/Thin Discharge Activity: Return to Normal Activity Weight Bearing Status: Full weight bearing Allergies/Adverse Reactions: Allergies erythromycin base [Erythromycin Base] Allergy (Verified 11/10/18 15:34) Shortness of breath lemon Allergy (Verified 11/10/18 15:34) Anaphylaxis [place] Allergy (Verified 11/10/18 15:34) Anaphylaxis orange Allergy (Verified 12/22/17 20:07) Anaphylaxis Penicillins [PCN] Allergy (Verified 12/22/17 20:07) Anaphylaxis omeprazole Adverse Reaction (Verified 11/10/18 15:34) made my bones ache Medications to take at Discharge Amlodipine/Valsartan [Exforge 10-160 MG Tablet] 1 tab PO DAILY 11/10/18 Lorazepam [Ativan] 1 mg PO DAILY PRN PRN 11/10/18 Omeprazole 40 mg PO DAILY 11/10/18 Primary Care Physician: Chon Manriquez DO [Primary Care Provider] - Please follow up with your Primary Care Physician in: IN 2 WEEKS Test Results: Test results from this visit will be discussed in further detail at your follow-up appointment, if applicable.
--- NOTE | 2018-11-13 11:08 | DS.PCM_ITS ---
Discharge Date and Diagnosis Date of Admission: 11/10/18 Date of Discharge: 11/11/18 - Primary Discharge Diagnosis #1 noncardiac chest pain #2 essential hypertension - Secondary Discharge Diagnosis Chronic Problems (Last Reviewed 11/10/18 @ 16:33 by Roscoe Soriano DO) HTN (hypertension) (Chronic) Hospital Course and Treatment Operations: None Procedures: Nuclear stress test Summary of Care Provided: The patient is a 48 year old F seen in the emergency room at [facility] with chief complaint of chest pain which he described as a heaviness. Work-up in the emergency room included an EKG which showed a normal sinus rhythm with T wave inversions in lead V3 and V4, there is also flattening of the T waves in V5 and V6. This however was unchanged from the previous EKG in 2018. Patient's CBC, metabolic profile, d-dimer, and troponin were obtained and all were unremarkable. Chest x-ray was obtained and was negative. Patient was given nitroglycerin and aspirin, she stated that the nitroglycerin helped her chest discomfort, she was placed in observation status on PCU and serial enzymes were repeated-these remain normal. Patient underwent a nuclear stress test on 11/11/2018 which showed no evidence of reversible ischemia. On 11/11/2018, patient was seen and examined: On examination she appeared in good health and spirits. Vital signs as documented. Skin warm and dry and without overt rashes. Neck without JVD. Lungs clear. Heart exam notable for regular rhythm, normal sounds and absence of murmurs, rubs or gallops. Abdomen unremarkable and without evidence of organomegaly, masses, or abdominal aortic enlargement. Extremities nonedematous. Neuro: Cranial nerves II through XII are grossly intact, no focal motor deficits were noted, sensation to light touch and pinprick is intact. Psych: Patient is alert and oriented x3, she does not appear anxious or depressed On 11/11/2018, patient was seen and examined and felt to be in stable condition for discharge home - Physical Exam Vital Signs Temp Pulse Resp BP Pulse Ox 98.2 F 73 16 143/83 H 97 11/11/18 10:27 11/11/18 10:27 11/11/18 10:27 11/11/18 10:11/11/18 10:27 Oxygen Flow Rate (L/min) 2 Oxygen Delivery Method Room Air Weight: 101.8 kg Body Mass Index (BMI) 35.1 Intake and Output for Last 24 Hours 11/11/18 11/12/18 11/13/18 23:59 23:59 23:59 Intake Total 0 / 0 Balance 0 / 0 Discharge Activity: Return to Normal Activity Weight Bearing Status: Full weight bearing Home Medications: Medications to take at Discharge Amlodipine/Valsartan [Exforge 10-160 MG Tablet] 1 tab PO DAILY 11/10/18 Lorazepam [Ativan] 1 mg PO DAILY PRN PRN 11/10/18 Omeprazole 40 mg PO DAILY 11/10/18 Primary Care Physician: Chon Manriquez DO [Primary Care Provider] - Please follow up with your Primary Care Physician in: IN 2 WEEKS Disposition: Home Minutes spent on discharge:: 32 Patient Condition:: Stable Medical Necessity - Tobacco Use Smoking Status: Current some day smoker Tobacco Use: Cigarettes Meaningful Use Info Meaningful Use Diagnoses (Choose all that apply): None applicable Code Visit OBSV E&M: 91218 Observation care discharge
== END 2018-11-11 11:52 | disposition home or self-care (01) ==
LOC: ED 15:26 → PCU 16:00
PROVIDERS: Emergency Provider Emergency Medicine; Family Provider Family Medicine; PCP Family Medicine; Visit Provider Internal Medicine
DX: R07.89 Other chest pain (principal); R06.02 Shortness of breath; R11.2 Nausea with vomiting, unspecified; I10 Essential (primary) hypertension; F17.210 Nicotine dependence, cigarettes, uncomplicated; K21.9 Gastro-esophageal reflux disease without esophagitis; Z79.899 Other long term (current) drug therapy; Z82.49 Family history of ischemic heart disease and other diseases of the circulatory system
CPT/HCPCS: 36415; 71045; 78452; 80048; 80061; 84484; 85025; 85379; 85610; 85730; 93005; 93017; 99218; 99285; A9500; A4216; G0378

== ENCOUNTER → 2019-04-28 13:00 | Outpatient (CLI) | payer BC, SELFPAY ==
[2019-02-07 13:23] VITALS: BMI 33.5
[2019-04-20 15:02] VITALS: BMI 31.8
--- NOTE | 2019-04-28 13:02 | BI_ITS ---
MAMMOGRAPHY - BILATERAL SCREENING REASON FOR EXAM: Female, 49 years old. Routine annual screening examination. PERTINENT HISTORY: Sister with breast cancer. TECHNIQUE: Digital bilateral breast dannie (3D mammographic acquisition) in the CC and MLO projections. 2-D mediolateral oblique (MLO) and craniocaudad (CC) views of both breasts were obtained. CAD: Full Field Digital Mammography with Computer Added Detection was performed. COMPARISON: Comparison is made with prior examination dated April 27, 2018. FINDINGS: Breast Composition: There are scattered areas of fibroglandular density. There are no dominant masses or suspicious calcifications. Stable small benign-appearing bilateral axillary lymph nodes. No other significant abnormalities are identified. There has been no significant change since the prior study. BI/SCREEN MAMM (CAD) W/DANNIE BILAT IMPRESSION: Stable bilateral screening mammogram. Yearly follow-up mammogram recommended. (A) ASSESSMENT CATEGORY: BIRADS Category 2: Benign. A letter regarding these results will be sent to the patient by the facility within 30 days. Approximately 10% of breast cancers are not detected by mammography. A normal mammogram should not delay biopsy of a clinically suspicious abnormality. [id number] Electronically Signed: Evin Fierro, at 8:24 EST , Service support ,
== END ==
PROVIDERS: Family Provider Family Medicine; PCP Family Medicine; Referring Provider Family Medicine; Visit Provider Family Medicine
DX: Z12.31 Encounter for screening mammogram for malignant neoplasm of breast (principal); Z80.3 Family history of malignant neoplasm of breast
CPT/HCPCS: 77063; 77067

== ENCOUNTER → 2019-07-21 12:35 | Outpatient (CLI) | payer BC, SELFPAY ==
[2019-04-20 15:02] VITALS: BMI 31.8
--- NOTE | 2019-07-21 12:59 | CT_ITS ---
STUDY: CT LEFT FOOT REASON FOR EXAM: Female, 49 years old. FALL LEFT FOOT FX. FELL 1 WEEK AGO RADIATION DOSAGE (If Supplied By Facility): CTDIvol = ( 6.13 ) mGy, DLP = ( 126.00 ) mGycm TECHNIQUE: Thin section transaxial imaging of the foot was obtained, with sagittal and coronal reconstructed images. Individualized dose optimization techniques were used for this CT. COMPARISON: None. FINDINGS: Normal talus, calcaneus, and tarsal bones. Normal visualized tibiotalar, subtalar, talonavicular, calcaneocuboid, tarsal and tarsometatarsal articulations. Acute nondisplaced oblique fracture of the distal shaft of the fifth metatarsal bone. Normal metatarsophalangeal joint of the great toe. Normal tibial and fibular sesamoid bones. Normal interphalangeal joint of the great toe. Normal phalanges of the great toe. Normal second through fifth metatarsophalangeal joints. Normal interphalangeal joints and phalanges of the lesser toes. The soft tissue structures are unremarkable. CT/Extremity Lower without Contra IMPRESSION: Acute nondisplaced oblique fracture of the distal shaft of the fifth metatarsal bone. Electronically Signed: Geovanni Painting MD at 16:38 EST Tel , Service support ,
--- NOTE | 2019-07-21 12:59 | RAD_ITS ---
STUDY: X-RAY CHEST REASON FOR EXAM: Female, 49 years old. PRE OP, NO CHEST COMPLAINTS TECHNIQUE: PA and lateral views of the chest. COMPARISON: 11/10/2018 FINDINGS: The lungs are clear and expanded. There is no demonstrated pleural abnormality. Normal size heart. Normal mediastinum and claudine. Normal visualized pulmonary arteries. Normal visualized aortic arch and descending thoracic aorta. Normal visualized thoracic spine. Normal visualized ribs, clavicles, and shoulders. There is no demonstrated abnormality of the visualized soft tissue structures of the upper abdomen. RAD/Chest PA and Lateral IMPRESSION: Normal x-ray examination of the chest. Electronically Signed: Geovanni Painting MD at 15:19 EST Tel , Service support ,
[2019-07-21 13:36] LABS: Absolute Lymphocyte Count 1.97 X10^3/uL (0.83-4.51); Basophil# 0.05 X10^3/uL; Basophil% 0.8 % (0-1); Eosinophil# 0.05 X10^3/uL; Eosinophils% 0.8 % (0-5); Hematocrit 42.9 % (37-47); Hemoglobin 14.3 g/dL (12.0-15.0); Lymphocyte # 1.97 X10^3/ul (4.0); Lymphocyte % 30.5 % (19-41); Mean Corp Hgb Conc 33.3 g/dL (32-36); Mean Corpuscular Hgb 32.8 pg (27.0-32.0); Mean Corpuscular Volume 98.4 fL (81-99); Mean Platelet Vol. 10.9 fl (6.2-12.0); Monocyte# 0.42 X10^3/uL; Monocyte% 6.5 % (0-10); NRBC Flagged by Analyzer 0 % (0-5); Neutrophil # 3.95 X10^3/uL (2.7-7.7); Neutrophil % 61.2 % (47-70); Platelet Count 301 K/mm3 (150-450); RBC Distribution Width CV 12.5 % (11.6-14.6); RBC Distribution Width SD 45.2 fl (35.1-43.9); Red Blood Count 4.36 M/mm3 (4.2-5.4); White Blood Count 6.5 K/mm3 (4.4-11.0)
[2019-07-21 13:53] LABS: International Normalized Ratio 0.9; Partial Thromboplast Time 28.3 Seconds (24.1-36.2); Prothrombin Time (Protime)PT. 12.3 SECONDS (11.7-14.9)
--- NOTE | 2019-07-21 13:57 | EKG12_ITS ---
Test Reason : PRE OP Blood Pressure : / mmHG Vent. Rate : 064 BPM Atrial Rate : 064 BPM P-R Int : 130 ms QRS Dur : 106 ms QT Int : 412 ms P-R-T Axes : 009 060 048 degrees QTc Int : 425 ms Normal sinus rhythm Incomplete right bundle branch block Nonspecific T wave abnormality Abnormal ECG Confirmed by SAMARIA BARNES, MARCELO ([id number]), publication editor ERIKA MORALES ([id number]) on 07/24/2019 3:42:14 PM Referred By: Barry Morales Confirmed By:MARCELO MERA MD
[2019-07-21 14:00] LABS: Anion Gap 6 (5-15); BUN 12 mg/dL (7-18); BUN/Creat Ratio 18.9 RATIO (10-20); Calcium,Total 9.1 mg/dL (8.5-10.1); Chloride 106 mmol/L (98-107); Creatinine, Serum 0.63 mg/dL (0.55-1.02); EST Glomerular Filtration Rate 105 mL/min (>60); Est Glom Filt Rate - Afr Amer 127 mL/min (>60); Glucose 94 mg/dL (74-106); Potassium 3.8 mmol/L (3.5-5.1); Sodium Level 136 mmol/L (136-145)
[2019-07-21 14:25] LABS: Hemoglobin A1c 5.1 % (4.2-6.3)
== END ==
PROVIDERS: PCP Family Medicine; Referring Provider Podiatrist Foot & Ankle Surgery; Visit Provider Podiatrist Foot & Ankle Surgery
DX: S92.352A Displaced fracture of fifth metatarsal bone, left foot, initial encounter for closed fracture (principal); Z01.810 Encounter for preprocedural cardiovascular examination; Z01.811 Encounter for preprocedural respiratory examination
CPT/HCPCS: 36415; 71046; 73700; 80048; 83036; 85025; 85610; 85730; 93005

== ENCOUNTER → 2020-03-08 17:13 | Outpatient (CLI) | payer BC, SELFPAY ==
[2019-07-25 16:05] VITALS: BMI 31.8
== END ==
PROVIDERS: PCP Family Medicine; Referring Provider Nurse Practitioner Family; Visit Provider Nurse Practitioner Family
DX: R05 Cough (principal); Z20.828 Contact with and (suspected) exposure to other viral communicable diseases
CPT/HCPCS: 87635; C9803; U0003

== ENCOUNTER → 2020-04-29 12:23 | Outpatient (CLI) | payer BC, SELFPAY ==
--- NOTE | 2020-04-29 12:25 | BI_ITS ---
MAMMOGRAPHY - BILATERAL SCREENING REASON FOR EXAM: Female, 50 years old. Routine annual screening examination. PERTINENT HISTORY: Sister with breast cancer. TECHNIQUE: Digital bilateral breast dannie (3D mammographic acquisition) in the CC and MLO projections. 2-D mediolateral oblique (MLO) and craniocaudad (CC) views of both breasts were obtained. CAD: Full Field Digital Mammography with Computer Added Detection was performed. COMPARISON: Comparison is made with prior study dated 04/28/2019 and 04/27/2018. FINDINGS: Breast Composition: There are scattered areas of fibroglandular density. There are no dominant masses or suspicious calcifications. No other significant abnormalities are identified. There has been no significant change since the prior study. BI/SCREEN MAMM (CAD) W/DANNIE BILAT IMPRESSION: Stable bilateral screening mammogram. Yearly follow-up mammogram recommended. (A) ASSESSMENT CATEGORY: BIRADS Category 1: Negative. A letter regarding these results will be sent to the patient by the facility within 30 days. Approximately 10% of breast cancers are not detected by mammography. A normal mammogram should not delay biopsy of a clinically suspicious abnormality. [id number] Electronically Signed: Evin Fierro, at 13:11 EST , Service support ,
== END ==
PROVIDERS: PCP Family Medicine; Referring Provider Family Medicine; Visit Provider Family Medicine
DX: Z12.31 Encounter for screening mammogram for malignant neoplasm of breast (principal); Z80.3 Family history of malignant neoplasm of breast
CPT/HCPCS: 77063; 77067

== ENCOUNTER → 2020-11-07 09:41 | Outpatient (CLI) | payer BC, SELFPAY ==
[2020-11-07 09:19] VITALS: BMI 34.7
[2020-11-07 12:31] LABS: Amphetamine Urine VISTA NEGATIVE (<1000 ng/mL); Barbiturate Urine VISTA NEGATIVE (< 200 ng/mL); Benzodiazepine Urine VISTA NEGATIVE (< 200 ng/mL); Cocaine Urine VISTA NEGATIVE (< 300 ng/mL); Ecstacy Urine VISTA NEGATIVE (< 500 ng/mL); Methadone Urine VISTA NEGATIVE (< 300 ng/mL); PCP Urine VISTA NEGATIVE (< 25 ng/mL); THC Urine VISTA NEGATIVE (< 50 ng/mL); Vista UDS pH Range 5
== END ==
PROVIDERS: PCP Family Medicine; Referring Provider Nurse Practitioner Family; Visit Provider Nurse Practitioner Family
DX: F41.9 Anxiety disorder, unspecified (principal)
CPT/HCPCS: 80307

== ENCOUNTER 2021-05-28 12:56 | Outpatient (CLI) | payer BC, SELFPAY ==
--- NOTE | 2021-05-28 12:58 | BI_ITS ---
MAMMOGRAPHY - BILATERAL SCREENING REASON FOR EXAM: Female, 51 years old. Routine annual screening examination. PERTINENT HISTORY: Sisters with breast cancer. TECHNIQUE: Digital bilateral breast dannie (3D mammographic acquisition) in the CC and MLO projections. 2-D mediolateral oblique (MLO) and craniocaudad (CC) views of both breasts were obtained. CAD: Full Field Digital Mammography with Computer Added Detection was performed. COMPARISON: Comparison is made with prior study dated 04/29/2020 and 04/28/2019. FINDINGS: Breast Composition: There are scattered areas of fibroglandular density. There are no dominant masses or suspicious calcifications. Stable small benign-appearing bilateral axillary lymph nodes. No other significant abnormalities are identified. There has been no significant change since the prior study. BI/SCRN MAMM (CAD)W/DANNIE BILAT IMPRESSION: Stable bilateral screening mammogram. Yearly follow-up mammogram recommended. (A) ASSESSMENT CATEGORY: BIRADS Category 2: Benign. A letter regarding these results will be sent to the patient by the facility within 30 days. Approximately 10% of breast cancers are not detected by mammography. A normal mammogram should not delay biopsy of a clinically suspicious abnormality. [id number] Electronically Signed: Evin Fierro MD at 13:50 EST , Service support ,
== END 2021-05-28 23:59 | disposition short-term general hospital (02) ==
LOC: OPBI 12:56
PROVIDERS: PCP Family Medicine; Referring Provider Family Medicine; Visit Provider Family Medicine
DX: Z12.31 Encounter for screening mammogram for malignant neoplasm of breast (principal)
CPT/HCPCS: 77063; 77067

== ENCOUNTER 2021-08-15 14:09 | Outpatient (CLI) | payer BC, SELFPAY ==
[2021-08-15 15:38] LABS: Absolute Lymphocyte Count 1.86 X10^3/uL (0.83-4.51); Basophil# 0.04 X10^3/uL; Basophil% 0.7 % (0-1); Eosinophil# 0.06 X10^3/uL; Eosinophils% 1.1 % (0-5); Hematocrit 40.2 % (37-47); Hemoglobin 13.3 g/dL (12.0-15.0); Lymphocyte # 1.86 X10^3/ul (0.83-4.51); Lymphocyte % 34.7 % (19-41); Mean Corp Hgb Conc 33.1 g/dL (32-36); Mean Corpuscular Hgb 32.3 pg (27.0-32.0); Mean Corpuscular Volume 97.6 fL (81-99); Mean Platelet Vol. 10.9 fl (6.2-12.0); Monocyte# 0.38 X10^3/uL; Monocyte% 7.1 % (0-10); NRBC Flagged by Analyzer 0 % (0-5); Platelet Count 270 K/mm3 (150-450); RBC Distribution Width CV 12.3 % (11.6-14.6); RBC Distribution Width SD 44.5 fl (35.1-43.9); Red Blood Count 4.12 M/mm3 (4.2-5.4); White Blood Count 5.4 K/mm3 (4.4-11.0)
[2021-08-15 15:43] LABS: ALB/GLOB Ratio 1.1 RATIO (0.9-2.4); AST(SGOT) 24 U/L (15-37); Alanine Aminotransfer ALT/SGPT 38 U/L (13-56); Albumin, Serum 3.7 g/dL (3.2-5.0); Alkaline Phosphatase 70 U/L (45-117); Anion Gap 3 (5-15); BUN 9 mg/dL (7-18); BUN/Creat Ratio 12.6 RATIO (10-20); Chloride 105 mmol/L (98-107); Cholesterol 220 mg/dL (200); Creatinine, Serum 0.71 mg/dL (0.55-1.02); EST Glomerular Filtration Rate 91 mL/min (>60); Est Glom Filt Rate - Afr Amer 111 mL/min (>60); Globulin 3.5 g/dL (2.2-4.2); Glucose 100 mg/dL (74-106); High Density Lipoprotein 53 mg/dL; Potassium 4.1 mmol/L (3.5-5.1); Protein, Total 7.2 g/dL (6.4-8.2); Sodium Level 136 mmol/L (136-145); Thyroid Stim Hormone (TSH) 1.02 uIU/mL (0.358-3.74); Triglycerides 139 mg/dL; Very Low Density Lipoprotein 28 mg/dL (5-40)
[2021-08-15 15:58] LABS: Amphetamine Urine VISTA NEGATIVE (<1000 ng/mL); Barbiturate Urine VISTA NEGATIVE (< 200 ng/mL); Benzodiazepine Urine VISTA NEGATIVE (< 200 ng/mL); Cocaine Urine VISTA NEGATIVE (< 300 ng/mL); Ecstacy Urine VISTA NEGATIVE (< 500 ng/mL); Methadone Urine VISTA NEGATIVE (< 300 ng/mL); PCP Urine VISTA NEGATIVE (< 25 ng/mL); THC Urine VISTA NEGATIVE (< 50 ng/mL); Vista UDS pH Range 5
== END 2021-08-15 23:59 | disposition home or self-care (01) ==
LOC: BIMLAB 14:10
PROVIDERS: PCP Family Medicine; Referring Provider Nurse Practitioner Family; Visit Provider Nurse Practitioner Family
DX: F41.9 Anxiety disorder, unspecified (principal); I10 Essential (primary) hypertension; K21.9 Gastro-esophageal reflux disease without esophagitis
CPT/HCPCS: 36415; 80053; 80061; 80307; 84443; 85025

== ENCOUNTER → 2021-10-01 | Outpatient (CLI) | payer BC, SELFPAY | END | disposition home or self-care (01) | LOC: LABSPEC 16:03 | PROVIDERS: PCP Family Medicine; Referring Provider Nurse Practitioner Family; Visit Provider Nurse Practitioner Family | DX: Z20.822 Contact with and (suspected) exposure to COVID-19 (principal) | CPT/HCPCS: 87635; U0003; U0005 ==

== ENCOUNTER 2021-10-21 07:43 | Day surgery (SDC) | payer BC, SELFPAY ==
[2021-10-21 08:06] VITALS: BP 141/94; PULSE 74; RESP 16; TEMP 36.4; O2SAT 97; BMI 33.0
[2021-10-21] MEDS: Lactated Ringers 1,000 ML 15 ML IV (08:23)
--- NOTE | 2021-10-21 08:31 | H&P.OPEN ---
HPI - General HPI Narrative YAMILKA LEYVA, is a 51 F who presents for screening colonoscopy. Patient has never had a colonoscopy in the past. Patient reports no blood in her stool or abdominal pain. No family history of colon cancer in the immediate family. PFSH Medical History Alcohol use Arthritis Back pain Cyst of brain Depression Gastric reflux GERD (gastroesophageal reflux disease) High blood pressure history of left foot surgery History of pain when walking History of stress test Hypertension Injury of head and neck Post-menopausal Smoker Home Medications amlodipine-valsartan [Exforge] 1 tab PO DAILY 10/17/21 [History Last Taken 10/21/21 04:30] lorazepam [Ativan] 1 mg PO PRN PRN 10/17/21 [History Last Taken Unknown] pantoprazole 40 mg PO DAILY 10/17/21 [History Last Taken Unknown] Allergy/AdvReac Type Severity Reaction Status Date / Time duloxetine Allergy Mild heart Verified 10/21/21 08:04 racing erythromycin base Allergy Shortness Verified 10/21/21 08:04 [Erythromycin Base] of breath lemon Allergy Anaphylaxis Verified 10/21/21 08:04 gila river Allergy Anaphylaxis Verified 10/21/21 08:04 orange Allergy Anaphylaxis Verified 10/21/21 08:04 Penicillins [PCN] Allergy Anaphylaxis Verified 10/21/21 08:04 omeprazole AdvReac made my Verified 10/21/21 08:04 bones ache Family History Father Myocardial infarction High cholesterol Mother Myocardial infarction High cholesterol Sister Cancer Grandmother Aneurysm Surgical History History of foot surgery History of hysterectomy Social History Smoking Status: Current some day smoker tobacco type: cigarettes alcohol intake: current alcohol intake frequency: a few times a month Alcohol type: beer and wine substance use type: does not use what type of physical activity do you participate in: walking frequency: daily Past Medical/Surgical History Planned Operation Planned Operative Procedure/s: COLONOSCOPY Previous Hospitalizations/Surgeries HX Hospitalizations: No Any Problems With Anesthesia: No You/Your Family Experience Fever (Hyperthermia) With Anes: No Cholinesterase deficiency: No Cardiovascular Hx Chest Pain within Last 2 months: Yes Hx of Irregular Heartbeat and/or Afib: No (palpitations) Hx Heart Attack: No Hx Hypertension: Yes (CONTROLLED on meds) Hx Cardiac Surgery/Stents/Etc.: No Hx Pain in Legs when Walking/Leg Cramps: Yes Respiratory Hx Chronic Obstructive Pulmonary Disease (COPD): No Hx Emphysema: No Hx Sleep Apnea: No Do You Snore Loudly (louder than talking or can be heard): No Do You Often Feel Tired/ Fatigued/ Sleepy Dring Daytime?: No Has Anyone Observed You Stop Breathing During Sleep?: No Result (for STOP score): Negative Hx Smoking: Yes Smoking Status: Current some day smoker Gastrointestinal Hx Gastrointestinal Bleed: No Hx Ulcer: Yes Hx Unplanned Weight Loss of 20#: No Neurological Hx Seizures: No Hx Multiple Sclerosis: No Hx Parkinson's Disease: No Does patient have nerve stimulator: No Blood Disorder Hx High Cholesterol: No Hx Hepatitis: No Hx Cirrhosis: No Hx Anemia: No Hx Blood Disorders: No Genitourinary Hx Renal Disease: No Hx Dialysis: No Musculoskeletal Hx Arthritis: Yes (hands) Hx Rheumatoid Arthritis: No Endocrine Hx Diabetes: No (hypoglycemia) Thyroid Disease: No Psycho/Social Hx Substance Use: No Hx Alcohol Use: Yes (3 times/week (6-10 beers)) Hx Anxiety: Yes Hx Depression: Yes Hx Dementia: No Miscellaneous Hx Cancer: No Recent Exposure to Contagious Disease: No Allergies duloxetine Allergy (Mild, Verified 10/21/21 08:04) heart racing erythromycin base [Erythromycin Base] Allergy (Verified 10/21/21 08:04) Shortness of breath lemon Allergy (Verified 10/21/21 08:04) Anaphylaxis gila river Allergy (Verified 10/21/21 08:04) Anaphylaxis orange Allergy (Verified 10/21/21 08:04) Anaphylaxis Penicillins [PCN] Allergy (Verified 10/21/21 08:04) Anaphylaxis omeprazole Adverse Reaction (Verified 10/21/21 08:04) made my bones ache Discharge Is Pt Admitted From a Residential, or a Fpc: No After D/C, Where Do you Plan to Go: Return Home Vital Signs Vital Signs Vital Signs: 10/21/21 08:06 Temperature 97.5 F L Temperature Source Temporal Pulse Rate 74 Respiratory Rate 16 Respiratory Pattern Normal Blood Pressure 141/94 H Blood Pressure Mean 109 Blood Pressure Source Monitor Blood Pressure Position Semi-Fowlers Blood Pressure Location Left Arm Pulse Ox 97 Oxygen Delivery Method Room Air Weight Weight: 205 lb 0.478 oz Body Mass Index (BMI) 33.0 Physical Exam Const alert and oriented x3 Resp normal respiratory effort and normal air movement Cardio regular rate and regular rhythm GI soft to palpation, non-tender and non-distended Assessment & Plan Assessment/Plan (1) Encounter for screening for malignant neoplasm of colon: PLAN: I explained endoscopy in detail to the patient. I explained the risks including but not limited to stroke or heart attack with anesthesia, perforation of the GI tract, bleeding, infection. I explained that any of these could necessitate further emergency surgery. The patient understands and all questions were answered sufficiently. The patient wishes to proceed with procedure. Rajeev Burrows MD Pager: [facility] [address] [place] [address], [address] [place] [address] Office: Surgery Risks - Colonoscopy Risks Include but are not Limited To: Risks include but are not limited to: Bleeding, perforation requiring further surgery, inability to complete colonoscopy requiring barium enema.
[2021-10-21 08:59] VITALS: BP 125/84; BP 141/94; PULSE 65; RESP 16; TEMP 36.3; O2SAT 95
--- NOTE | 2021-10-21 08:59 | OP.COLON_ITS ---
Patient Name: Kimberley Thibodeaux Procedure Date: 10/21/2021 8:38 AM Date of : 1970 Age: 51 Procedure: Colonoscopy Indications: Screening for colorectal malignant neoplasm Providers: Rajeev Burrows MD Referring MD: Chon Manriquez Medicines: Propofol per Anesthesia Patient Profile: This is a 51 year old female. Refer to note in patient chart for documentation of history and physical. Last Colonoscopy: none. The patient's first colonoscopy is today. Complications: No immediate complications. Procedure: Pre-Anesthesia Assessment: - Prior to the procedure, a History and Physical was performed, and patient medications and allergies were reviewed. The patient's tolerance of previous anesthesia was also reviewed. The risks and benefits of the procedure and the sedation options and risks were discussed with the patient. All questions were answered, and informed consent was obtained. Prior Anticoagulants: The patient has taken no previous anticoagulant or antiplatelet agents. After reviewing the risks and benefits, the patient was deemed in satisfactory condition to undergo the procedure. After I obtained informed consent, the scope was passed under direct vision. Throughout the procedure, the patient's blood pressure, pulse, and oxygen saturations were monitored continuously. The Colonoscope was introduced through the anus and advanced to the cecum, identified by appendiceal orifice and ileocecal valve. The colonoscopy was performed without difficulty. The patient tolerated the procedure well. The quality of the bowel preparation was good. Scope In: 8:46:37 AM Scope Withdrawal Time 0 hours 5 minutes 59 seconds Scope Out: 8:57:34 AM Total Procedure Duration Time 0 hours 10 minutes 57 seconds Findings: The entire examined colon appeared normal on direct and retroflexion views. Impression: - The entire examined colon is normal on direct and retroflexion views. - No specimens collected. Recommendation: - Discharge patient to home. - Resume previous diet. - Continue present medications. - Repeat colonoscopy in 10 years for screening purposes. Procedure Code(s): --- Professional --- 44853, Colonoscopy, flexible; diagnostic, including collection of specimen(s) by brushing or washing, when performed (separate procedure) Diagnosis Code(s): --- Professional --- Z12.11, Encounter for screening for malignant neoplasm of colon CPT copyright 2017 [employer]. All rights reserved. The codes documented in this report are preliminary and upon pai gow manager review may be revised to meet current compliance requirements. Rajeev Burrows MD 10/21/2021 8:59:14 AM This report has been signed electronically. Number of Addenda: 0 Note Initiated On: 10/21/2021 8:38 AM
--- NOTE | 2021-10-21 09:00 | OP.CCLET_ITS ---
10/21/2021 Chon Manriquez Re : Colonoscopy procedure for Kimberley Thibodeaux Dear Dr. Manriquez This procedure was performed on Thursday, October 21, 2021. My impressions and recommendations are as follows: Impressions : - The entire examined colon is normal on direct and retroflexion views. - No specimens collected. Recommendations : - Discharge patient to home. - Resume previous diet. - Continue present medications. - Repeat colonoscopy in 10 years for screening purposes. My findings are described in the full procedure note, which is enclosed. If I can be of further assistance, please feel free to contact me at Doctor phone number(s): , Work: . Sincerely, Rajeev Burrows MD 10/21/2021 8:59:14 AM This report has been signed electronically.
[2021-10-21 09:05] VITALS: BP 115/75; BP 141/94; PULSE 61; RESP 16; O2SAT 94
[2021-10-21 09:10] VITALS: BP 121/81; BP 141/94; PULSE 59; RESP 16; O2SAT 95
[2021-10-21 09:15] VITALS: BP 129/85; BP 141/94; PULSE 59; RESP 16; TEMP 36.1; O2SAT 97
[2021-10-21 09:37] VITALS: BP 141/94
== END 2021-10-21 09:46 | disposition home or self-care (01) ==
LOC: EN 07:43 → AC 07:44
PROVIDERS: PCP Family Medicine; Referring Provider Family Medicine; Visit Provider Surgery
PROC: 0DJD8ZZ Inspection of Lower Intestinal Tract, Via Natural or Artificial Opening Endoscopic (ICD-10-PCS; CPT 45378; principal; 2021-10-21 08:40)
DX: Z12.11 Encounter for screening for malignant neoplasm of colon (principal); K21.9 Gastro-esophageal reflux disease without esophagitis; I10 Essential (primary) hypertension; M19.90 Unspecified osteoarthritis, unspecified site; F17.210 Nicotine dependence, cigarettes, uncomplicated; Z78.0 Asymptomatic menopausal state; Z79.899 Other long term (current) drug therapy
CPT/HCPCS: 45378; J7120; J2405

== ENCOUNTER → 2023-02-18 | Outpatient (CLI) | payer BC, SELFPAY ==
[2023-02-18 15:02] LABS: Absolute Lymphocyte Count 1.85 X10^3/uL (0.83-4.51); Absolute Neutrophil Count 2.7 X10^3/uL (2.0-7.7); Basophil# 0.05 X10^3/uL; Eosinophil# 0.13 X10^3/uL; Eosinophils% 2.5 % (0-5); Hematocrit 42.1 % (37-47); Hemoglobin 13.5 g/dL (12.0-15.0); Lymphocyte # 1.85 X10^3/ul (0.83-4.51); Lymphocyte % 36.1 % (19-41); Mean Corp Hgb Conc 32.1 g/dL (32-36); Mean Corpuscular Hgb 31.7 pg (27.0-32.0); Mean Corpuscular Volume 98.8 fL (81-99); Mean Platelet Vol. 10.4 fl (6.2-12.0); Monocyte# 0.36 X10^3/uL; NRBC Flagged by Analyzer 0 % (0-5); Neutrophil # 2.73 X10^3/uL (2.7-7.7); Neutrophil % 53.2 % (47-70); Platelet Count 333 K/mm3 (150-450); RBC Distribution Width CV 12.5 % (11.6-14.6); RBC Distribution Width SD 45.2 fl (35.1-43.9); Red Blood Count 4.26 M/mm3 (4.2-5.4); White Blood Count 5.1 K/mm3 (4.4-11.0)
[2023-02-18 15:20] LABS: Hemoglobin A1c 5.1 % (3.8-5.6)
[2023-02-18 15:32] LABS: ALB/GLOB Ratio 1.1 RATIO (0.9-2.4); AST(SGOT) 25 U/L (15-37); Alanine Aminotransfer ALT/SGPT 41 U/L (13-56); Alkaline Phosphatase 83 U/L (45-117); Anion Gap 4 (5-15); BUN 12 mg/dL (7-18); BUN/Creat Ratio 20.3 RATIO (10-20); Calcium,Total 9.4 mg/dL (8.5-10.1); Chloride 106 mmol/L (98-107); Cholesterol 234 mg/dL (200); Creatinine, Serum 0.59 mg/dL (0.55-1.02); EST Glomerular Filtration Rate 113 mL/min (>60); Est Glom Filt Rate - Afr Amer 136 mL/min (>60); Globulin 3.6 g/dL (2.2-4.2); Glucose 103 mg/dL (74-106); High Density Lipoprotein 50 mg/dL; Potassium 4.5 mmol/L (3.5-5.1); Protein, Total 7.6 g/dL (6.4-8.2); Sodium Level 138 mmol/L (136-145); Thyroid Stim Hormone (TSH) 1.07 uIU/mL (0.358-3.74); Triglycerides 212 mg/dL; Very Low Density Lipoprotein 42 mg/dL (5-40)
== END | disposition home or self-care (01) ==
LOC: BIMLAB 14:16
PROVIDERS: PCP Family Medicine; Visit Provider Family Medicine
DX: F41.9 Anxiety disorder, unspecified (principal); I10 Essential (primary) hypertension
CPT/HCPCS: 36415; 80053; 80061; 83036; 84443; 85025

== ENCOUNTER → 2023-07-28 | Outpatient (CLI) | payer BC, SELFPAY | END | disposition home or self-care (01) | LOC: LABSPEC 14:29 | PROVIDERS: PCP Family Medicine; Visit Provider Family Medicine | DX: L03.119 Cellulitis of unspecified part of limb (principal); L02.419 Cutaneous abscess of limb, unspecified | CPT/HCPCS: 87070; 87205 ==

== ENCOUNTER 2023-08-11 09:00 | Outpatient (RCR) | payer BC, SELFPAY ==
[2023-08-11 09:09] VITALS: BP 146/74; RESP 18; TEMP 35.9; O2SAT 80; BMI 33.3
--- NOTE | 2023-08-11 09:58 | HP.PCM_ITS ---
History of Present Illness Date of Service: 08/11/23 Chief Complaint: Follow-up on a dehisced left knee replacement wound History of Wound: 53-year-old white female that came to us since her wound reopened from a June 28 surgery reopened on July 05 swollen she was able to get pus out now has a thick crusted of blood and slough over the wound. Patient is trying to pull the scab off herself but leaving everything open to air. Cultures came back rare staph infection she has been taking doxycycline twice a day per her Orthopedic surgeon. PFSH Medical History Alcohol use Arthritis Back pain Cyst of brain Depression Gastric reflux GERD (gastroesophageal reflux disease) High blood pressure history of left foot surgery History of pain when walking History of stress test Hypertension Injury of head and neck Post-menopausal Smoker Home Medications lorazepam 1 mg tablet (Ativan) 1 mg PO BID PRN Anxiety #60 tabs 02/18/23 [Rx Last Taken Unknown] melatonin 10 mg capsule 10 mg PO HS PRN sleep #90 caps 02/18/23 [Rx Last Taken Unknown] pantoprazole 40 mg tablet,delayed release 40 mg PO DAILY #60 tabs 02/18/23 [Rx Last Taken Unknown] amlodipine 5 mg-valsartan 160 mg tablet 1 tab PO DAILY #30 tabs 07/20/23 [Rx Last Taken Unknown] ondansetron HCl 4 mg tablet 4 mg PO Q8H PRN nausea and vomiting #30 tabs 07/20/23 [Rx Last Taken Unknown] phentermine 15 mg capsule 15 mg PO DAILY #30 caps 07/27/23 [Rx Last Taken Unknown] Allergy/AdvReac Type Severity Reaction Status Date / Time duloxetine Allergy Mild heart Verified 07/27/23 14:07 racing erythromycin base Allergy Shortness Verified 07/27/23 14:07 [Erythromycin Base] of breath lemon Allergy Anaphylaxis Verified 07/27/23 14:07 [place] Allergy Anaphylaxis Verified 07/27/23 14:07 orange Allergy Anaphylaxis Verified 07/27/23 14:07 Penicillins [PCN] Allergy Anaphylaxis Verified 07/27/23 14:07 omeprazole AdvReac made my Verified 07/27/23 14:07 bones ache Family History Father Myocardial infarction High cholesterol Mother Myocardial infarction High cholesterol Sister Cancer Grandmother Aneurysm Surgical History History of foot surgery History of hysterectomy Social History Smoking Status: Current some day smoker tobacco type: cigarettes alcohol intake: current alcohol intake frequency: a few times a month Alcohol type: beer and wine substance use type: does not use what type of physical activity do you participate in: walking frequency: daily ROS Constitutional Constitutional: Reports systems reviewed and no addt'l complaints, except as documented Eyes Eyes: Reports systems reviewed and no addt'l complaints, except as documented ENT HEENT: Reports systems reviewed and no addt'l complaints, except as documented Cardiovascular Cardiovascular: Reports systems reviewed and no addt'l complaints, except as documented Respiratory/Chest Respiratory/Chest: Reports systems reviewed and no addt'l complaints, except as documented Gastrointestinal Gastrointestinal: Reports systems reviewed and no addt'l complaints, except as documented Genitourinary Genitourinary: Reports systems reviewed and no addt'l complaints, except as documented Musculoskeletal Musculoskeletal: Reports systems reviewed and no addt'l complaints, except as documented Integumentary Integumentary: Reports wounds and other Details: Left knee surgical dehisced site Neurologic Neurologic: Reports systems reviewed and no addt'l complaints, except as documented Psychiatric Psychiatric: Reports systems reviewed and no addt'l complaints, except as documented Endocrine Endocrinology: Reports systems reviewed and no addt'l complaints, except as documented Hematologic/Lymphatic Hematologic/Lymphatic: Reports systems reviewed and no addt'l complaints, except as documented Allergic/Immunologic Allergic/Immunologic: Reports systems reviewed and no addt'l complaints, except as documented Vital Signs Vital Signs Vital Signs: 08/11/23 09:09 Temperature 96.7 F L Temperature Source Temporal Respiratory Rate 18 Blood Pressure 146/74 H Blood Pressure Mean 98 Blood Pressure Source Monitor Blood Pressure Position Semi-Fowlers Blood Pressure Location Left Arm Pulse Ox 80 Oxygen Delivery Method Room Air Weight Weight: 200 lb Body Mass Index (BMI) 33.3 Physical Exam Const oriented x3 General Appearance: cooperative Exam Limitations: no limitations HEENT normocephalic Eyes General Eye: normal appearance of both eyes Neck General: normal visual inspection Resp normal respiratory effort Effort and Inspection: able to speak in complete sentences Auscultation: clear to auscultation bilaterally Cardio regular rate and regular rhythm Palpation: normal PMI Rate: regular rate Rhythm: regular rhythm GI Palpation: soft and no hepatosplenomegaly Extremity General Extremity: normal exam except as noted and other findings Other Details: Dehisced surgical wound left knee with thick scabbing that needs to be debrided Skin no rashes or lesions noted Neuro oriented x3 Psych Appearance: grossly normal Speech: normal speech Thought Content: normal thought content Judgement: judgement good Debridement Note Debridement Note Post-Debridement Measurements and Additional Note: Post-Debridement Measurements/Treatment - Nurse 1 - General Ulcer Assessment Start: 08/11/23 09:09 Freq: Status: Active Protocol: [employer] Activity Type Activity Date Activity User E-sign Co-sign Detail Recorded Client Recorded Date Recorded By Document 08/11/23 09:09 Desktop 08/11/23 09:21 08/11/23 09:09 - Today's Visit Information Type of service Initial Visit Arrival Mode Ambulatory Transfer Assistance None Patient Identification Verified (Name & Yes ) Patient Requires Transmission-Based No Precautions Height and Weight Height 5 ft 5 in Weight 200 lb Weight in Pounds 200.0 lbs Weight Measurement Method Stated by Patient Body Mass Index (BMI) 33.3 BMI Classification Obese BSA - [place] 1.98 Vital Signs Temperature (97.8 F-99.1 F) 96.7 F L Temperature Source Temporal Pulse Location Monitor Respiratory Rate (12-18) 18 Respiratory rate source Observation Pulse Oximetry 80 Oxygen Delivery Method Room Air Blood Pressure (90/60-120/80) 146/74 H Blood Pressure Mean 98 Source Monitor Position Semi-Fowlers Blood Pressure Location Left Arm History Since Last Visit- (Skip if this is Patient's initial visit) Left Footwear Regular Shoe Right Footwear Regular Shoe Pain Scale: 0-10 Numeric Is Patient Pain Free? No Left knee -Intensity 6 -Duration (hours) Chronic -Pain Behavior No Change in Behavior -Pain Aggravating Factors Exercise/ Activity -Alleviating Factors/Interventions Will continue to monitor Communication Assessment Preferred language [employer] Required No Able to Read Yes Able to Write Yes Communication Tools None Right Hearing Abillity Normal Left Hearing Abillity Normal Visual Assistive Devices None Teaching Assessment Preferences Verbal,Written Barriers to Learning None Readiness To Learn Good Anxiety Level Calm Cooperation Cooperative Perception Coherent Interest in Health Problem Asks Questions Education Importance Acknowledges Need Does Patient Smoke tobacco or other No substances Is Patient Diabetic No Functional Assessment Recent Decline in Ability to Perform Denies Any Declines Culture/Evangelical/Manager Multimedia Cultural/Evangelical Needs that may affect No Treatment Plan Would you allow 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 Manager Multimedia to contact place of muslim No WC - Nurse 1 - General Ulcer Measurement Start: 08/11/23 09:09 Freq: Status: Active Protocol: Activity Type Activity Date Activity User E-sign Co-sign Detail Recorded Client Recorded Date Recorded By Document 08/11/23 09:09 Desktop 08/11/23 09:21 08/11/23 09:09 Wound Center Nurse 1 Left Knee -Current Size (cm) - Length 0.1 -Current Size (cm) - Width 0.1 -Current Size (cm) - Depth 0.1 -Total Square Cm 0.01 -Date of Last Picture (Recall this 08/11/23 field) -Photo Taken Yes -Epithelialization Small 1-33% -Tunneling No -Undermining/Tunneling No -Circular Undermining No -Exudate Amt None Present -Temperature (Zahra-wound Skin No Abnormality Appearance) (Pt Warm) -Tenderness on Palpation (Zahra-wound Yes Skin Appearance) -Anesthetic Used 5% Lidocaine Gel -Wound Comment(s) area is scabbed and crusty - Nurse 2 - General Ulcer CM Notes Start: 08/11/23 09:09 Freq: Status: Active Protocol: Activity Type Activity Date Activity User E-sign Co-sign Detail Recorded Client Recorded Date Recorded By Document 08/11/23 09:30 [facility] [employer] 08/11/23 09:38 [facility] 08/11/23 09:30 Wound Center Nurse 2 -Time 09:30 -Correct Patient Yes -Correct Side, Site, Position Yes -Correct Procedure Yes -Procedure Performed Yes -Type of Procedure Debridement -Clinical Debridement Subcutaneous -Tissue Removed Subcutaneous -Post Debridement (cm) - Length 6.4 -Post Debridement (cm) - Width 0.9 -Post Debridement (cm) - Depth 0.2 -Total Square (Post) (cm) 5.76 -Area of Debridement (cm) - Length 6.4 -Area of Debridement (cm) - Width 0.9 -Total Square (Area) (cm) 5.76 -Tunneling No -Undermining/Tunneling No -Wound/Ulcer Outcome Not Healed -Ulcer Cleansing Rinsed/ Irrigated with Saline -Foul Odor after Cleansing No -Bioengineered Tissue No -Bleeding Controlled with NA -Treatment Response Procedure Tolerated Well -Debridement - Subq, 1st 20sq cm Yes Pain Scale: 0-10 Numeric Is Patient Pain Free? Yes WC - Nurse 3 - General Ulcer D/C NN Start: 08/11/23 09:09 Freq: Status: Active Protocol: Activity Type Activity Date Activity User E-sign Co-sign Detail Recorded Client Recorded Date Recorded By Document 08/11/23 09:43 KW Desktop 08/11/23 09:44 KW Edit Result 08/11/23 09:43 KW (1) Desktop 08/11/23 09:58 KW (1) Left Knee - Mepilex Border 1 => 3 Left - Compression Wrap => Jorge Luis Wrap Notes: => sent 2 extra mepilex drsg home till pt recieves supplies and reinforced dressing with jorge luis. 08/11/23 09:43 Wound Care Center Nurse 3 Left Knee -Primary Dressing Applied Fibracol Plus 4x4,Mepilex Border, NonAdherent Contact Layer -Fibracol Plus 4x4 1 -Mepilex Border 3 Left -Compression Wrap Jorge Luis Wrap Pain Scale: 0-10 Numeric Is Patient Pain Free? Yes WC - Visit Discharge Discharge Condition Stable Ambulatory Status Ambulatory Transportation Private Auto Accompanied by mother in law Medication Reconcilliation completed & No provided to patient/care provider Clinical Summary of Care Provided Yes Notes: sent 2 extra mepilex drsg home till pt recieves supplies and reinforced dressing with jorge luis. Assessment/Plan Assessment/Plan (1) Dehiscence of surgical wound: CODE(S): T81.31XA - Disruption of external operation (surgical) wound, not elsewhere classified, initial encounter QUALIFIERS: Encounter type: initial encounter Qualified Code(s): T81.31XA - Disruption of external operation (surgical) wound, not elsewhere classified, initial encounter PLAN: Scrub left knee while showering with antibacterial soap and water pat dry Apply a strip of Fibracol to open wound area moistened cover with Adaptic and an absorbent dressing every day Follow-up in 1 week (2) Infected wound: CODE(S): T14.8XXA - Other injury of unspecified body region, initial encounter; L08.9 - Local infection of the skin and subcutaneous tissue, unspecified
--- NOTE | 2023-08-20 11:17 | WC ---
3.27.24 LT KNEE INCISION INITIAL
== END 2023-08-15 23:59 | disposition home or self-care (01) ==
LOC: WC 09:00
PROVIDERS: PCP Family Medicine; Referring Provider Family Medicine; Visit Provider Nurse Practitioner
DX: T81.31XA Disruption of external operation (surgical) wound, not elsewhere classified, initial encounter (principal); I10 Essential (primary) hypertension; F17.200 Nicotine dependence, unspecified, uncomplicated
CPT/HCPCS: 11042; 99203; G0463

== ENCOUNTER 2023-08-25 08:45 | Outpatient (RCR) | payer BC, SELFPAY ==
[2023-08-16 00:52] VITALS: BP 146/74; RESP 18; TEMP 35.9; O2SAT 80; BMI 33.3
[2023-08-18 08:54] VITALS: BP 115/74; PULSE 75; RESP 18; TEMP 35.8; BMI 33.3
--- NOTE | 2023-08-18 10:09 | PCM.WC.PN ---
History of Present Illness Date of Service: 08/18/23 Chief Complaint: Follow-up on a dehisced left knee replacement wound History of Wound: 53-year-old white female that came to us since her wound reopened from a June 28 surgery reopened on July 05 swollen she was able to get pus out now has a thick crusted of blood and slough over the wound. Patient is trying to pull the scab off herself but leaving everything open to air. Cultures came back rare staph infection she has been taking doxycycline twice a day per her Orthopedic surgeon. Progress of Wound: Much improved this week she cleaned out her self scrubbing it while in the shower. All scabs and slough is been removed. Healing majority of the suture line just the top half where it is more tender. Had a suture that came out also. Seen by orthopedics he cut the suture for her. Subjective Subjective Patient is agreeable to plan Objective Data Objective Data No sign of infection no increase in pus or drainage or redness looks clean looks good healing well and closing well. Will continue using the Fibracol and a foam dressing Vital Signs: Vital Signs Temp Pulse Resp BP Pulse Ox 96.5 F L 75 18 115/74 80 08/18/23 08:54 08/18/23 08:54 08/18/23 08:54 08/18/23 08:54 08/16/23 00:52 Weight: 200 lb Body Mass Index (BMI) 33.3 Physical Exam Const oriented x3 General Appearance: cooperative Exam Limitations: no limitations HEENT normocephalic Eyes General Eye: normal appearance of both eyes Neck General: normal visual inspection Resp normal respiratory effort Effort and Inspection: able to speak in complete sentences Auscultation: clear to auscultation bilaterally Cardio regular rate and regular rhythm Palpation: normal PMI Rate: regular rate Rhythm: regular rhythm GI Palpation: soft and no hepatosplenomegaly Extremity General Extremity: normal exam except as noted and other findings Other Details: Dehisced surgical wound left knee with thick scabbing that needs to be debrided Skin no rashes or lesions noted Neuro oriented x3 Psych Appearance: grossly normal Speech: normal speech Thought Content: normal thought content Judgement: judgement good Debridement Note Debridement Note Wound debrided: Left knee dehisced surgical wound Type of Debridement: Excisional debridement Anesthesia Used: 5% Lidocaine Gel Depth: Down to and including healthy tissue and in the subcutaneous layer Percentage of wound debrided: 100 Instrument Used: 3mm curette Tissue Removed: Fibrin and some slough Severity: Limited To Skin Breakdown Amount of bleeding with debridement: Mild Bleeding Controlled with: Compression and gauze Patient tolerated procedure: Patient tolerated procedure well Post-Debridement Measurements and Additional Note: Post-Debridement Measurements/Treatment NAILA - Nurse 1 - General Ulcer Assessment Start: 08/18/23 08:53 Freq: Status: Active Protocol: BHUMIKA Activity Type Activity Date Activity User E-sign Co-sign Detail Recorded Client Recorded Date Recorded By Document 08/18/23 08:54 [facility] [employer] 08/18/23 08:58 DL 08/18/23 08:54 WC - Today's Visit Information Type of service Follow-up Visit (Physician/DIABETIC EDUCATOR ) Arrival Mode Ambulatory Transfer Assistance None Patient Identification Verified (Name & Yes ) Patient Requires Transmission-Based No Precautions Height and Weight Body Mass Index (BMI) 33.3 BMI Classification Obese Vital Signs Temperature (97.8 F-99.1 F) 96.5 F L Temperature Source Temporal Pulse Rate (60-100) 75 Pulse Location Monitor Respiratory Rate (12-18) 18 Respiratory rate source Observation Blood Pressure (90/60-120/80) 115/74 Blood Pressure Mean (mm Hg) 87 Source Monitor Position Semi-Fowlers Blood Pressure Location Left Arm History Since Last Visit- (Skip if this is Patient's initial visit) Have you changed medications since your No last visit? Any new allergies or adverse reactions No Had a fall/change in ADL's that may No increase risk of falls Signs or symptoms of abuse and/or No neglect since last visit Have you been in the hospital since your No last visit? Has dressing in place as prescribed Yes Has compression in place as prescribed Yes Has offloadiing in place as prescribed No Experienced any changes in pain level or No management Pain Scale: 0-10 Numeric Is Patient Pain Free? Yes NAILA - Nurse 1 - General Ulcer Measurement Start: 08/18/23 08:53 Freq: Status: Active Protocol: Activity Type Activity Date Activity User E-sign Co-sign Detail Recorded Client Recorded Date Recorded By Document 08/18/23 08:54 [facility] [employer] 08/18/23 08:58 DL 08/18/23 08:54 Wound Center Nurse 1 Left Knee -Combined with other wound No -Current Size (cm) - Length 4.8 -Current Size (cm) - Width 0.3 -Current Size (cm) - Depth 0.1 -Total Square Cm 1.44 -Tunneling No -Undermining/Tunneling No -Circular Undermining No -Exudate Amt Medium -Exudate Type Serosanguineous -Wound Margin Distinct, Outline Attached -Granulation Amt Medium (34-66%) -Granulation Quality Gleed -Slough/Fibrin Yes -Necrosis Amt Medium (34-66%) -Necrotic Tissue Type Adherent Slough -Structure Exposed N/A -Texture (Zahra-wound Skin Appearance) Assessed, Scarring -Moisture (Zahra-wound Skin Appearance) Assessed -Color (Zahra-wound Skin Appearance) Assessed -Temperature (Zahra-wound Skin No Abnormality Appearance) (Pt Warm) -Tenderness on Palpation (Zahra-wound No Skin Appearance) -Ulcer Cleansing Wound Cleanser -Foul Odor after Cleansing No -Anesthetic Used 5% Lidocaine Gel WC - Nurse 2 - General Ulcer CM Notes Start: 08/18/23 08:53 Freq: Status: Active Protocol: Activity Type Activity Date Activity User E-sign Co-sign Detail Recorded Client Recorded Date Recorded By Document 08/18/23 09:07 MW Desktop 08/18/23 09:10 MW 08/18/23 09:07 Wound Center Nurse 2 -Time 09:08 -Correct Patient Yes -Correct Side, Site, Position Yes -Correct Procedure Yes -Procedure Performed Yes -Type of Procedure Debridement -Clinical Debridement Subcutaneous -Tissue Removed Subcutaneous -Post Debridement (cm) - Length 5.0 -Post Debridement (cm) - Width 0.3 -Post Debridement (cm) - Depth 0.2 -Total Square (Post) (cm) 1.50 -Area of Debridement (cm) - Length 5.0 -Area of Debridement (cm) - Width 0.3 -Total Square (Area) (cm) 1.50 -Tunneling No -Undermining/Tunneling No -Circular Undermining No -Wound/Ulcer Outcome Not Healed -Ulcer Cleansing Rinsed/ Irrigated with Saline -Foul Odor after Cleansing No -Bioengineered Tissue No -Bleeding Controlled with Pressure -Treatment Response Procedure Tolerated Well -Offloading No -Debridement - Subq, 1st 20sq cm Yes Pain Scale: 0-10 Numeric Is Patient Pain Free? Yes WC - Nurse 3 - General Ulcer D/C NN Start: 08/18/23 08:53 Freq: Status: Active Protocol: Activity Type Activity Date Activity User E-sign Co-sign Detail Recorded Client Recorded Date Recorded By Document 08/18/23 09:14 [facility] Desktop 08/18/23 09:15 [facility] 08/18/23 09:14 Wound Care Center Nurse 3 Left Knee -Ulcer Cleansing Rinsed/ Irrigated with Saline -Foul Odor after Cleansing No -Primary Dressing Applied Fibracol Plus 4x4,Mepilex Border, NonAdherent Contact Layer -Other Dressing applied per dl steam drier tender -Fibracol Plus 4x4 1 -Mepilex Border 1 Treatment Response Procedure Tolerated Well Pain Scale: 0-10 Numeric Is Patient Pain Free? Yes WC - Visit Discharge Discharge Condition Stable Ambulatory Status Ambulatory Transportation Private Auto Assessment/Plan Assessment/Plan (1) Dehiscence of surgical wound: CODE(S): T81.31XA - Disruption of external operation (surgical) wound, not elsewhere classified, initial encounter QUALIFIERS: Encounter type: initial encounter Qualified Code(s): T81.31XA - Disruption of external operation (surgical) wound, not elsewhere classified, initial encounter PLAN: Scrub left knee while showering with antibacterial soap and water pat dry Apply a strip of Fibracol to open wound area moistened cover with Adaptic and an absorbent dressing every day Follow-up in 1 week (2) Infected wound: CODE(S): T14.8XXA - Other injury of unspecified body region, initial encounter; L08.9 - Local infection of the skin and subcutaneous tissue, unspecified
[2023-08-25 09:02] VITALS: BP 133/92; PULSE 87; RESP 20; TEMP 37; BMI 33.3
--- NOTE | 2023-08-25 10:34 | PCM.WC.PN ---
History of Present Illness Date of Service: 08/25/23 Chief Complaint: Follow-up on a dehisced left knee replacement wound History of Wound: 53-year-old white female that came to us since her wound reopened from a June 28 surgery reopened on July 05 swollen she was able to get pus out now has a thick crusted of blood and slough over the wound. Patient is trying to pull the scab off herself but leaving everything open to air. Cultures came back rare staph infection she has been taking doxycycline twice a day per her Orthopedic surgeon. Progress of Wound: Much improved this week she cleaned out her self scrubbing it while in the shower. All scabs and slough is been removed. Healing majority of the suture line just the top half where it is more tender. Had a suture that came out also. Seen by orthopedics he cut the suture for her. She found another suture in it and now it is healing better we will discharge her from the wound center and give her 1 more pack of Promogran but basically she does not need to come back unless there is signs of infection Subjective Subjective Patient approved for not having to come back Objective Data Objective Data Patient will be discharged from the wound center and follow-up as needed Vital Signs: Vital Signs Temp Pulse Resp BP Pulse Ox 98.6 F 87 20 H 133/92 H 80 08/25/23 09:02 08/25/23 09:02 08/25/23 09:02 08/25/23 09:02 08/16/23 00:52 Weight: 200 lb Body Mass Index (BMI) 33.3 Physical Exam Const oriented x3 General Appearance: cooperative Exam Limitations: no limitations HEENT normocephalic Eyes General Eye: normal appearance of both eyes Neck General: normal visual inspection Resp normal respiratory effort Effort and Inspection: able to speak in complete sentences Auscultation: clear to auscultation bilaterally Cardio regular rate and regular rhythm Palpation: normal PMI Rate: regular rate Rhythm: regular rhythm GI Palpation: soft and no hepatosplenomegaly Extremity General Extremity: normal exam except as noted and other findings Other Details: Dehisced surgical wound left knee with thick scabbing that needs to be debrided Skin no rashes or lesions noted Neuro oriented x3 Psych Appearance: grossly normal Speech: normal speech Thought Content: normal thought content Judgement: judgement good Debridement Note Debridement Note No debridement was completed: No debridement was completed today Post-Debridement Measurements and Additional Note: Post-Debridement Measurements/Treatment WC - Nurse 1 - General Ulcer Assessment Start: 08/18/23 08:53 Freq: Status: Active Protocol: BHUMIKA Activity Type Activity Date Activity User E-sign Co-sign Detail Recorded Client Recorded Date Recorded By Document 08/18/23 08:54 DL Desktop 08/18/23 08:58 DL Document 08/25/23 09:02 DL Desktop 08/25/23 09:07 DL 08/18/23 08/25/23 08:54 09:02 WC - Today's Visit Information Type of service Follow-up Visit Follow-up Visit (Physician/COMPUTER SYSTEMS SECURITY ADMINISTRATOR (Physician/COMPUTER SYSTEMS SECURITY ADMINISTRATOR ) ) Arrival Mode Ambulatory Cane Transfer Assistance None None Patient Identification Verified (Name & Yes Yes ) Patient Requires Transmission-Based No No Precautions Height and Weight Body Mass Index (BMI) 33.3 33.3 BMI Classification Obese Obese Vital Signs Temperature (97.8 F-99.1 F) 96.5 F L 98.6 F Temperature Source Temporal Temporal Pulse Rate (60-100) 75 87 Pulse Location Monitor Monitor Respiratory Rate (12-18) 18 20 H Respiratory rate source Observation Observation Blood Pressure (90/60-120/80) 115/74 133/92 H Blood Pressure Mean (mm Hg) 87 105 Source Monitor Monitor Position Semi-Fowlers Blood Pressure Location Left Arm History Since Last Visit- (Skip if this is Patient's initial visit) Have you changed medications since your No No last visit? Any new allergies or adverse reactions No No Had a fall/change in ADL's that may No No increase risk of falls Signs or symptoms of abuse and/or No No neglect since last visit Have you been in the hospital since your No No last visit? Has dressing in place as prescribed Yes Yes Has compression in place as prescribed Yes N/A Has offloadiing in place as prescribed No N/A Experienced any changes in pain level or No No management Pain Scale: 0-10 Numeric Is Patient Pain Free? Yes Yes NAILA - Nurse 1 - General Ulcer Measurement Start: 08/18/23 08:53 Freq: Status: Active Protocol: Activity Type Activity Date Activity User E-sign Co-sign Detail Recorded Client Recorded Date Recorded By Document 08/18/23 08:54 DL Desktop 08/18/23 08:58 DL Document 08/25/23 09:02 DL Desktop 08/25/23 09:07 DL 08/18/23 08/25/23 08:54 09:02 Wound Center Nurse 1 Left Knee -Combined with other wound No -Current Size (cm) - Length 4.8 4.4 -Current Size (cm) - Width 0.3 0.2 -Current Size (cm) - Depth 0.1 0.1 -Total Square Cm 1.44 0.88 -Tunneling No -Undermining/Tunneling No -Circular Undermining No -Exudate Amt Medium Small -Exudate Type Serosanguineous -Wound Margin Distinct, Distinct, Outline Outline Attached Attached -Granulation Amt Medium (34-66%) Small (1-33%) -Granulation Quality Mobeetie Mobeetie -Slough/Fibrin Yes -Necrosis Amt Medium (34-66%) Small (1-33%) -Necrotic Tissue Type Adherent Slough Adherent Slough -Structure Exposed N/A N/A -Texture (Zahra-wound Skin Appearance) Assessed, Scarring Scarring -Moisture (Zahra-wound Skin Appearance) Assessed No Abnormality -Color (Zahra-wound Skin Appearance) Assessed No Abnormality -Temperature (Zahra-wound Skin No Abnormality No Abnormality Appearance) (Pt Warm) (Pt Warm) -Tenderness on Palpation (Zahra-wound No No Skin Appearance) -Ulcer Cleansing Wound Cleanser Rinsed/ Irrigated with Saline -Foul Odor after Cleansing No No -Anesthetic Used 5% Lidocaine 5% Lidocaine Gel Gel WC - Nurse 2 - General Ulcer CM Notes Start: 08/18/23 08:53 Freq: Status: Active Protocol: Activity Type Activity Date Activity User E-sign Co-sign Detail Recorded Client Recorded Date Recorded By Document 08/18/23 09:07 MW Desktop 08/18/23 09:10 MW Document 08/25/23 09:11 MW Desktop 08/25/23 09:13 MW 08/18/23 08/25/23 09:07 09:11 Wound Center Nurse 2 Left Knee -Time 09:08 09:11 -Correct Patient Yes Yes -Correct Side, Site, Position Yes Yes -Correct Procedure Yes Yes -Procedure Performed Yes Yes -Type of Procedure Debridement Debridement -Clinical Debridement Subcutaneous Subcutaneous -Tissue Removed Subcutaneous Subcutaneous -Post Debridement (cm) - Length 5.0 0.8 -Post Debridement (cm) - Width 0.3 0.3 -Post Debridement (cm) - Depth 0.2 0.2 -Total Square (Post) (cm) 1.50 0.24 -Area of Debridement (cm) - Length 5.0 0.8 -Area of Debridement (cm) - Width 0.3 0.3 -Total Square (Area) (cm) 1.50 0.24 -Tunneling No No -Undermining/Tunneling No No -Circular Undermining No No -Wound/Ulcer Outcome Not Healed Not Healed -Ulcer Cleansing Rinsed/ Rinsed/ Irrigated with Irrigated with Saline Saline -Foul Odor after Cleansing No No -Bioengineered Tissue No No -Bleeding Controlled with Pressure Pressure -Treatment Response Procedure Procedure Tolerated Well Tolerated Well -Offloading No No -Debridement - Subq, 1st 20sq cm Yes Yes Pain Scale: 0-10 Numeric Is Patient Pain Free? Yes Yes WC - Nurse 3 - General Ulcer D/C NN Start: 08/18/23 08:53 Freq: Status: Active Protocol: Activity Type Activity Date Activity User E-sign Co-sign Detail Recorded Client Recorded Date Recorded By Document 08/18/23 09:14 [facility] Desktop 08/18/23 09:15 [employer] Document 08/25/23 09:22 MW Desktop 08/25/23 09:23 MW 08/18/23 08/25/23 09:14 09:22 Wound Care Center Nurse 3 Left Knee -Ulcer Cleansing Rinsed/ Wound Cleanser Irrigated with Saline -Foul Odor after Cleansing No No -Negative Pressure Wound Therapy N/A -Primary Dressing Applied Fibracol Plus Mepilex Border, 4x4,Mepilex NonAdherent Border, Contact Layer, NonAdherent Promogran Contact Layer -Other Dressing applied per dl open claims representative -Fibracol Plus 4x4 1 -Mepilex Border 1 1 -Promogran 1 Treatment Response Procedure Procedure Tolerated Well Tolerated Well Pain Scale: 0-10 Numeric Is Patient Pain Free? Yes Yes Teaching: Wound Center Discharge Instructions -Person Taught Patient -Teaching Method Discussion -Response to teaching Verbalize understanding Dressing Your Wound -Person Taught Patient -Teaching Method Discussion, Demonstration -Response to teaching Verbalize understanding WC - Visit Discharge Discharge Condition Stable Stable Ambulatory Status Ambulatory Ambulatory Transportation Private Auto Private Auto Accompanied by self Medication Reconcilliation completed & No provided to patient/care provider Clinical Summary of Care Provided Yes Notes: healed, discharged from clinic Assessment/Plan Assessment/Plan (1) Dehiscence of surgical wound: CODE(S): T81.31XA - Disruption of external operation (surgical) wound, not elsewhere classified, initial encounter QUALIFIERS: Encounter type: initial encounter Qualified Code(s): T81.31XA - Disruption of external operation (surgical) wound, not elsewhere classified, initial encounter PLAN: Continue using Promogran in the small top hole follow-up if signs of infection otherwise discharged from the wound center follow-up as needed (2) Infected wound: CODE(S): T14.8XXA - Other injury of unspecified body region, initial encounter; L08.9 - Local infection of the skin and subcutaneous tissue, unspecified
== END 2023-09-14 23:59 | disposition home or self-care (01) ==
LOC: WC 08:45
PROVIDERS: PCP Family Medicine; Referring Provider Family Medicine; Visit Provider Nurse Practitioner
DX: T81.31XA Disruption of external operation (surgical) wound, not elsewhere classified, initial encounter (principal); T14.8XXA Other injury of unspecified body region, initial encounter
CPT/HCPCS: 11042

== ENCOUNTER 2024-02-05 23:20 | Emergency (ER) | payer BC, SELFPAY ==
[2024-02-05 23:21] VITALS: BP 174/100; PULSE 87; RESP 16; TEMP 36.6; O2SAT 98; BMI 31.3
--- NOTE | 2024-02-05 23:28 | RAD_ITS ---
EXAM: XR RIGHT FOOT COMPLETE, 3 OR MORE VIEWS CLINICAL INDICATION: INJURY TECHNIQUE: Frontal, lateral and oblique views of the right foot. COMPARISON: Right ankle radiographs of this date. Right foot radiographs of 11/12/2015. FINDINGS: BONES/JOINTS: No acute fracture or dislocation is identified. The lateral malleolar avulsion fracture noted on today''s right foot radiographs is obscured by overlapping osseous structures. There are stable smooth deformity affecting the distal shaft of the fifth metatarsal, with 2 surgical screws remaining in place within the distal fifth metatarsal. Small plantar calcaneal spur again noted. Mild bony bunion formation noted along the medial aspect of the first metatarsal head. No sclerotic or destructive changes observed. SOFT TISSUES: Mild soft tissue swelling overlies the fifth metatarsal and additional soft tissue swelling noted overlying the first metatarsal head bunion. RAD/Foot min 3 Views IMPRESSION: 1. Old fracture deformity of the right fifth metatarsal with surgical screws in place. 2. No acute fracture or dislocation of the foot identified. Electronically Signed: Donnell Strange MD at 0:35 EDT ,
--- NOTE | 2024-02-05 23:28 | RAD_ITS ---
EXAM: XR RIGHT ANKLE COMPLETE, 3 OR MORE VIEWS CLINICAL INDICATION: INJURY TECHNIQUE: Frontal, lateral and oblique views of the right ankle. COMPARISON: Right ankle radiographs of 12/22/2017. FINDINGS: BONES/JOINTS: An irregular 1 x 6 mm calcification parallels the cortex of the distal tip of the lateral malleolus, consistent with an avulsed osseous fragment, which is new as compared to the prior study. The lateral malleolus is intact. Ankle joint space is preserved. Small plantar calcaneal spur again noted. Surgical screws are again noted within the fifth metatarsal. No subluxation. Normal alignment. SOFT TISSUES: Soft tissue swelling surrounds the lateral aspect of the ankle. Lateral view shows an ankle effusion. RAD/Ankle min 3 Views IMPRESSION: Small acute avulsion fracture arising from the distal tip of the lateral malleolus. Electronically Signed: Donnell Strange MD at 0:32 EDT ,
--- NOTE | 2024-02-05 23:28 | EDS_ITS ---
HPI History of Present Illness Chief Complaint: Lower Extremity Injury Informant: patient and spouse/S.O. 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 She has pain in the lateral aspect of the ankle as well as the distal and peroneal aspect of the foot. She is concerned because she has hardware there from her prior surgery. Difficulty bearing weight on her right lower extremity due to pain in the foot and ankle no other injuries. [facility] Medical History Post-menopausal Depression Alcohol use Arthritis Back pain Injury of head and neck Gastric reflux Smoker History of pain when walking History of stress test Hypertension history of left foot surgery Cyst of brain GERD (gastroesophageal reflux disease) High blood pressure Home Medications ?Medication ?Instructions ?Recorded ?Last Taken ?Type melatonin 10 mg capsule 10 mg PO HS PRN sleep #90 caps 02/18/23 Unknown Rx pantoprazole 40 mg tablet,delayed 40 mg PO DAILY #60 tabs 02/18/23 Unknown Rx release amlodipine 5 mg-valsartan 160 mg 1 tab PO DAILY #30 tabs 07/20/23 Unknown Rx tablet ondansetron HCl 4 mg tablet 4 mg PO Q8H PRN nausea and 07/20/23 Unknown Rx vomiting #30 tabs large comfort foam wedge pillow #1 ea 08/31/23 Unknown Rx raised toilet seat #1 ea 08/31/23 Unknown Rx lorazepam 1 mg tablet (Ativan) 1 mg PO BID PRN Anxiety #20 tabs 12/28/23 Unknown Rx phentermine 15 mg capsule 15 mg PO DAILY #30 caps 02/01/24 Unknown Rx Allergy/AdvReac Type Severity Reaction Status Date / Time duloxetine Allergy Mild heart Verified 02/05/24 23:21 racing erythromycin base Allergy Shortness Verified 02/05/24 23:21 (Erythromycin Base) of breath lemon Allergy Anaphylaxis Verified 02/05/24 23:21 quinault Allergy Anaphylaxis Verified 02/05/24 23:21 orange Allergy Anaphylaxis Verified 02/05/24 23:21 Penicillins (PCN) Allergy Anaphylaxis Verified 02/05/24 23:21 omeprazole AdvReac made my Verified 02/05/24 23:21 bones ache Family History Father Myocardial infarction High cholesterol Mother Myocardial infarction High cholesterol Sister Cancer Grandmother Aneurysm Surgical History History of foot surgery History of hysterectomy Social History Smoking Status: Current some day smoker tobacco type: cigarettes alcohol intake: current alcohol intake frequency: a few times a month Alcohol type: beer and wine substance use type: does not use what type of physical activity do you participate in: walking frequency: daily ROS ROS ED Constitutional Constitutional ED: Denies chills or fever(s) Musculoskeletal Musculoskeletal: Reports extremity pain; Denies neck pain Integumentary Denies Abrasions, rash or wounds Neurologic Neurologic: Denies paresthesias or weakness EXAM Physical Exam Const Vital Signs: 02/05/24 23:21 Temperature 97.9 F Temperature Source Temporal Pulse Rate 87 Respiratory Rate 16 Blood Pressure 174/100 H Blood Pressure Mean 124 Pulse Ox 98 Oxygen Delivery Method Room Air Positive well nourished and well developed General Appearance ED: well developed and NAD Neck full ROM and supple Back/Spine normal ROM and normal to inspection Extremity Extremity Narrative: No deformities. Limited range of motion of the right ankle due to pain. No tenderness of the lateral malleolus but tender in the soft tissues just distal and anterior. Base of the fifth metatarsal is nontender, but she has pain, contusion/bruising, and tenderness in area near the fifth MTPJ. Skin intact. Medial side of the foot and dorsal midfoot all nontender, no other toe tenderness. No tenderness at the proximal fibula. Neuro oriented x3, no focal motor deficits and no sensory deficits noted Sensorium / Orientation: alert Psych mental status grossly normal and thought process normal Skin no wounds Rashes: no rashes MDM MDM MDM Narrative Medical decision making narrative: Obtained x-rays of the right ankle and foot. 3 views of the right ankle and 3 views of the right foot both on my interpretation negative for acute fracture or dislocation. Radiology findings very small avulsion fracture distal tip of the lateral malleolus. This does not change the outpatient treatment. Patient reassured, will offer her something for pain, Aircast, crutches if she needs to, and postop shoe given the injury close to her MTPJ. Radiography Diagnostic Testing: Clinical Impression(s) from Imaging Studies Ankle X-Ray 02/05/24 23:28 IMPRESSION: Small acute avulsion fracture arising from the distal tip of the lateral malleolus. Electronically Signed: Donnell Strange MD at 0:32 EDT , Foot X-Ray 02/05/24 23:28 IMPRESSION: 1. Old fracture deformity of the right fifth metatarsal with surgical screws in place. 2. No acute fracture or dislocation of the foot identified. Electronically Signed: Donnell Strange MD at 0:35 EDT , Discharge Plan Triage Chief Complaint: Lower Extremity Injury ED Provider: Javier Strange Dx/Rx/DC Orders Clinical Impression: Sprain of ankle, right, Contusion of foot, right, Closed avulsion fracture of distal end of fibula Instructions: ED Ankle Sprain (Adult) Prescriptions: No Action pantoprazole 40 mg tablet,delayed release (DR/EC) 40 mg PO DAILY Qty: 60 2RF melatonin 10 mg capsule 10 mg PO HS PRN (Reason: sleep) Qty: 90 1RF amlodipine-valsartan 5-160 mg tablet 1 tab PO DAILY Qty: 30 0RF ondansetron HCl 4 mg tablet 4 mg PO Q8H PRN (Reason: nausea and vomiting) Qty: 30 0RF (DME) large comfort foam wedge pillow See Rx Instructions .Route .MEDSUPPLY Qty: 1 0RF Rx Instructions: As directed (DME) raised toilet seat See Rx Instructions .Route .MEDSUPPLY Qty: 1 0RF Rx Instructions: As directed lorazepam [Ativan] 1 mg tablet 1 mg PO BID PRN (Reason: Anxiety) Qty: 20 0RF Rx Instructions: One mg is one tablet phentermine 15 mg capsule 15 mg PO DAILY Qty: 30 0RF Rx Instructions: must administer 2 hours after breakfast Primary Care Provider: Chon Manriquez Referrals: Chon Manriquez, DO [Primary Care Provider] - 10-14 Days if not better (or your foot doctor/surgeon) Print Language: Hungarian Disposition Disposition: Home, Self Care
[2024-02-06] MEDS: Ibuprofen 600 MG Tablet PO (00:18)
== END 2024-02-06 00:55 | disposition home or self-care (01) ==
PROVIDERS: Emergency Provider Emergency Medicine; PCP Family Medicine; Visit Provider Emergency Medicine
DX: S82.409A Unspecified fracture of shaft of unspecified fibula, initial encounter for closed fracture (principal); S93.401A Sprain of unspecified ligament of right ankle, initial encounter; I10 Essential (primary) hypertension; S90.31XA Contusion of right foot, initial encounter; S82.831A Other fracture of upper and lower end of right fibula, initial encounter for closed fracture; W18.49XA Other slipping, tripping and stumbling without falling, initial encounter; Y93.89 Activity, other specified; Y92.009 Unspecified place in unspecified non-institutional (private) residence as the place of occurrence of the external cause; K21.9 Gastro-esophageal reflux disease without esophagitis; Z79.899 Other long term (current) drug therapy; F32.A Depression, unspecified; Z90.710 Acquired absence of both cervix and uterus; F17.210 Nicotine dependence, cigarettes, uncomplicated
CPT/HCPCS: 73610; 73630; 99282

== ENCOUNTER → 2024-04-25 | Outpatient (CLI) | payer BC, SELFPAY ==
[2024-05-01 09:21] LABS: QNTFERON TB Mitogen Value > 10.00 IU/mL (.); QNTFERON TB Nil Value 0.02 IU/mL (.); QNTFERON TB1+ Ag Value 0.01 IU/mL (.); QNTFERON TB2+ Ag Value 0.01 IU/mL (.); QNTIFERON TB Positive Criteria Negative (Negative)
== END | disposition home or self-care (01) ==
LOC: BIMLAB 16:01
PROVIDERS: PCP Family Medicine; Referring Provider Family Medicine; Visit Provider Family Medicine
DX: Z20.1 Contact with and (suspected) exposure to tuberculosis (principal)
CPT/HCPCS: 36415; 86480

== ENCOUNTER → 2024-05-23 | Outpatient (CLI) | payer BC, SELFPAY ==
[2024-05-23 17:38] LABS: ALB/GLOB Ratio 1.1 RATIO (0.9-2.4); AST(SGOT) 28 U/L (15-37); Alanine Aminotransfer ALT/SGPT 37 U/L (13-56); Albumin, Serum 4.2 g/dL (3.2-5.0); Alkaline Phosphatase 85 U/L (45-117); Anion Gap 5 (5-15); BUN 8 mg/dL (7-18); BUN/Creat Ratio 11.6 RATIO (10-20); Calcium,Total 9.7 mg/dL (8.5-10.1); Chloride 102 mmol/L (98-107); Creatinine, Serum 0.69 mg/dL (0.55-1.02); EST Glomerular Filtration Rate 94 mL/min (>60); Est Glom Filt Rate - Afr Amer 113 mL/min (>60); Globulin 3.8 g/dL (2.2-4.2); Glucose 93 mg/dL (74-106); Potassium 3.8 mmol/L (3.5-5.1); Sodium Level 136 mmol/L (136-145)
== END | disposition home or self-care (01) ==
LOC: BIMLAB 15:34
PROVIDERS: PCP Family Medicine; Referring Provider Family Medicine; Visit Provider Family Medicine
DX: I10 Essential (primary) hypertension (principal)
CPT/HCPCS: 36415; 80053